=== PATIENT | female | born 1985 | race American Indian/Alaskan Native ===

== ENCOUNTER 2018-10-15 00:33 | Observation (INO) | payer OTHER ==
[2018-10-15 00:39] VITALS: BMI 83.5
[2018-10-15] MEDS ORDERED: Albuterol-Ipratrop 3 mg / 0.5 (3 ml) UD IH STA (00:40)
[2018-10-15] MEDS ORDERED: Magnesium Sulfate 1 gm in D5W 1 GM/100 ML BAG IVPB ONE (00:40)
[2018-10-15] MEDS ORDERED: Albuterol-Ipratrop 3 mg / 0.5 (3 ml) UD ONE (00:41)
[2018-10-15] MEDS ORDERED: Albuterol 0.083% Inhal Sol (2.5 mg/3 mL) UD INH STA ×2 (00:50→01:57)
--- NOTE | 2018-10-15 01:00 | ED PDOC ---
Arrival/HPI - General Chief Complaint: Shortness Of Breath Time Seen by Provider: 10/15/18 00:34 Historian: Patient - History of Present Illness Narrative History of Present Illness (Text): 10/15/18 00:56 32 year old female, whose past medical history includes asthma and hypertension, presents to the emergency department with shortness of breath. Patient reports that she has been feeling intermittent shortness of breath for 2 days that worsened today. She reports using her nebulizer with minimal response in relieving her symptoms. She reports some neck pain as well. Patient denies any fevers, chills, headache, dizziness, chest pain, abdominal pain, nausea, vomiting, diarrhea, back pain, syncopal episodes or prior history requiring intubation. Time/Duration: Prior to Arrival, 24 hours Symptom Onset: Gradual Symptom Course: Unchanged Activities at Onset: Significant Context: Home Past Medical History - Provider Review Nursing Documentation Reviewed: Yes - Cardiac Hx Cardiac Disorders: Yes Hx Hypertension: Yes - Pulmonary Hx Respiratory Disorders: Yes Hx Asthma: Yes - Psychiatric Hx Substance Use: No - Surgical History Hx Appendectomy: Yes Hx Tonsillectomy: Yes - Anesthesia Hx Anesthesia: Yes Hx Anesthesia Reactions: Yes (respiratory failure) Family/Social History - Physician Review Nursing Documentation Reviewed: Yes Family/Social History: No Known Family HX Smoking Status: Never Smoked Hx Alcohol Use: No Hx Substance Use: No Allergies/Home Meds Allergies/Adverse Reactions: Allergies Penicillins Allergy (Verified 10/15/18 00:40) ANAPHYLAXIS pizza Allergy (Uncoded 10/15/18 00:40) URTICARIA anesthesia Adverse Reaction (Uncoded 10/15/18 00:40) ANAPHYLAXIS Review of Systems - Physician Review All systems were reviewed & negative as marked: Yes - Review of Systems Constitutional: absent: Fevers, Night Sweats Respiratory: SOB, Wheezing Cardiovascular: absent: Chest Pain Gastrointestinal: absent: Abdominal Pain, Diarrhea, Nausea, Vomiting Musculoskeletal: Neck Pain. absent: Back Pain Neurological: absent: Headache, Dizziness Physical Exam Temperature: Febrile Blood Pressure: Hypertensive Pulse: Tachycardic Respiratory Rate: Normal Appearance: Positive for: Well-Appearing, Non-Toxic, Comfortable Pain Distress: None Mental Status: Positive for: Alert and Oriented X 3 - Systems Exam Head: Present: Atraumatic, Normocephalic Pupils: Present: PERRL Extroacular Muscles: Present: EOMI Conjunctiva: Present: Normal Mouth: Present: Moist Mucous Membranes Neck: Present: Normal Range of Motion Respiratory/Chest: Present: Wheezes, Decreased Breath Sounds. No: Respiratory Distress, Accessory Muscle Use Cardiovascular: Present: Normal S1, S2, Tachycardic. No: Murmurs Abdomen: No: Tenderness, Distention, Peritoneal Signs Back: Present: Normal Inspection Upper Extremity: Present: Normal Inspection. No: Cyanosis, Edema Lower Extremity: Present: Normal Inspection. No: Edema Neurological: Present: GCS=15, Speech Normal Skin: Present: Warm, Dry, Normal Color. No: Rashes Psychiatric: Present: Alert, Oriented x 3, Normal Insight, Normal Concentration Medical Decision Making ED Course and Treatment: 10/15/18 01:02 Impression: 32 year old female presents with asthma exacerbation Plan: --Labs -- Albuterol -- Duonebs -- Mag Sulfate -- Solumedrol -- Rapid flu a/b -- Reassess and disposition Prior Visits: Notes and results from previous visits were reviewed. Progress Notes: 10/15/18 02:49 Labs noted to be influenza negative, however patient is noted to be febrile as well as leukocytosis of 17. CXR negative for focal consolidation or infiltrate. Spoke to Dr Barron(house staff) who accepts patient to hospitalist service. - Lab Interpretations Lab Results: 10/15/18 02:05 10/15/18 02:05 Lab Results 10/15/18 02:05: Beta HCG, Quant < 2.39 10/15/18 02:05: Sodium 134, Potassium 4.2, Chloride 98, Carbon Dioxide 31, Anion Gap 10, BUN 9, Creatinine 0.8, Est GFR ( Amer) > 60, Est GFR (Non-Af Amer) > 60, Random Glucose 129 H, Calcium 9.1, Total Bilirubin 0.8, AST 35, ALT 14, Alkaline Phosphatase 81, Total Protein 8.5 H, Albumin 3.9, Globulin 4.6, Albumin/Globulin Ratio 0.9 L 10/15/18 02:05: WBC 17.1 H, RBC 4.94, Hgb 12.0, Hct 39.8, MCV 80.6, MCH 24.3 L, MCHC 30.2 L, RDW 18.1 H, Plt Count 314, MPV 10.4, Neut % (Auto) 88.6 H, Lymph % (Auto) 8.2 L, [place] % (Auto) 3.1, Eos % (Auto) 0.0 L, Baso % (Auto) 0.1, Lymph # (Auto) 1.4, [place] # (Auto) 0.5, Eos # (Auto) 0.0, Baso # (Auto) 0.02, Absolute Neuts (auto) 15.11 H 10/15/18 01:02: Influenza Typ A,B (EIA) Negative for flu a/b I have reviewed the lab results: Yes - RAD Interpretation Radiology Orders: 10/15/18 00:40 CHEST PORTABLE [RAD] Stat - EKG Interpretation EKG Interpretation (Text): 10/15/18 02:48 Sinus tachycardia @119bpm No ST elevations, No T wave inversions Interpreted by ED Physician: Yes Type: 12 lead EKG - Medication Orders Current Medication Orders: Magnesium Sulfate/Dextrose (Magnesium Sulfate 1 Gm/100 Ml D5w) 1 gm in 100 mls @ 100 mls/hr IVPB ONCE ONE Stop: 10/15/18 01:39 Discontinued Medications Albuterol Sulfate (Albuterol 0.083% Inhal Nisa (2.5 Mg/3 Ml) Ud) 2.5 mg INH STAT STA Stop: 10/15/18 00:51 Albuterol/Ipratropium (Duoneb 3 Mg/0.5 Mg (3 Ml) Ud) 3 ml IH STAT STA Stop: 10/15/18 00:41 Methylprednisolone (Solu-Medrol) 125 mg IVP STAT STA Stop: 10/15/18 00:41 - Scribe Statement The provider has reviewed the documentation as recorded by the Zach Sims Provider Scribe Attestation: All medical record entries made by the Petraibdash were at my direction and personally dictated by me. I have reviewed the chart and agree that the record accurately reflects my personal performance of the history, physical exam, medical decision making, and the department course for this patient. I have also personally directed, reviewed, and agree with the discharge instructions and disposition. Disposition/Present on Arrival - Present on Arrival Any Indicators Present on Arrival: No History of DVT/PE: No History of Uncontrolled Diabetes: No Urinary Catheter: No History of Decub. Ulcer: No History Surgical Site Infection Following: None - Disposition Have Diagnosis and Disposition been Completed?: No Diagnosis: Respiratory tract infection Disposition: HOSPITALIZED Disposition Time: 02:48 Patient Plan: Admission Condition: GOOD
[2018-10-15 02:31] LABS: BASO # 0.02 K/mm3 (0.0-2.0); BASO % 0.1 % (0.0-3.0); LYMPH # 1.4 (1.2-3.4); LYMPH % 8.2 % (22.0-35.0); MEAN CELL VOLUME 80.6 fl (80.0-105.0); MEAN CORPUSCULAR HEMOGLOBIN 24.3 pg (25.0-35.0); MEAN CORPUSCULAR HGB CONC 30.2 g/dl (31.0-37.0); MEAN PLATELET VOLUME 10.4 fl (7.0-11.0); MONO # 0.5 (0.1-0.6); MONO % 3.1 % (1.0-6.0); RBC 4.94 10^6/uL (3.5-6.1); RED CELL DISTRIBUTION WIDTH 18.1 % (11.5-14.5); WHITE BLOOD COUNT 17.1 10^3/uL (4.5-11.0)
[2018-10-15] MEDS ORDERED: MEROPENEM 500 MG in NS 500 MG/50 ML BAG IVPB STA (02:38)
[2018-10-15 02:39] LABS: ALB/GLOB RATIO 0.9 (1.1-1.8); ALBUMIN 3.9 g/dL (3.0-4.8); ALT/SGPT 14 U/L (7-56); AST/SGOT 35 U/L (14-36); BLOOD UREA NITROGEN 9 mg/dL (7-21); CALCIUM 9.1 mg/dL (8.4-10.5); GFR NON-AFRICAN AMERICAN > 60
[2018-10-15] MEDS ORDERED: MEROPENEM 500 MG in NS 500 MG/50 ML BAG IVPB ONE (02:52)
--- NOTE | 2018-10-15 02:59 | CP.PCM.HP ---
<Rena Reyes - Last Filed: 10/15/18 04:40> History of Present Illness - History of Present Illness History of Present Illness: PGY1 Medicine History and Physical Exam Note for Dr. Barron CC: shortness of breath x2 days This is a 32-year-old F with morbid (severe) obesity and PMH asthma, hypertension, who presents to the [facility] ED complaining of shortness of breath x2 days. Patient states that she was singing in the choir 2 days ago, after which she became short of breath, and experienced stabbing chest pain that lasted about 1 hour. Patient states the chest pain radiated up to her left neck and she also had associated tingling in her left lower extremities. Patient informs that she has been feeling intermittent shortness of breath for 2 days, worsening t audrey. Patient states she attempted to get relief with her nebulizer, but only yielded little relief. ROS is otherwise unremarkable for headache, abdominal pain, nausea, vomiting, diarrhea, rash, blurred vision, recent fall, recent loss of consciousness, and/or dysuria. PMH: Asthma (Patient denies history of intubation), HTN PSH: appendectomy, tonsillectomy Family Hx: Patient denies Social Hx: denies ETOH, denies Tobacco, denies Recreational drug use Medications: albuterol PRN, Patient does not recall her BP medication Allergies: penicillin (anaphylaxis), Pizza (urticaria), anesthesia (anaphylaxis) Present on Admission - Present on Admission Any Indicators Present on Admission: No History of DVT/PE: No History of Uncontrolled Diabetes: No Urinary Catheter: No Decubitus Ulcer Present: No Review of Systems - Review of Systems All systems: reviewed and no additional remarkable complaints except (as stated in HPI) Past Patient History - Past Social History Smoking Status: Never Smoked - CARDIAC Hx Cardiac Disorders: Yes Hx Hypertension: Yes - PULMONARY Hx Respiratory Disorders: Yes Hx Asthma: Yes - PSYCHIATRIC Hx Substance Use: No - SURGICAL HISTORY Hx Appendectomy: Yes Hx Tonsillectomy: Yes - ANESTHESIA Hx Anesthesia: Yes Hx Anesthesia Reactions: Yes (respiratory failure) Meds Allergies/Adverse Reactions: Allergies Allergy/AdvReac Type Severity Reaction Status Date / Time Penicillins Allergy ANAPHYLAXIS Verified 10/15/18 00:40 pizza Allergy URTICARIA Uncoded 10/15/18 00:40 anesthesia AdvReac ANAPHYLAXIS Uncoded 10/15/18 00:40 Physical Exam - Constitutional Appears: No Acute Distress Additional comments: morbidly obese diaphoretic - Head Exam Head Exam: ATRAUMATIC, NORMAL INSPECTION, NORMOCEPHALIC - Eye Exam Eye Exam: EOMI, Normal appearance Pupil Exam: NORMAL ACCOMODATION - ENT Exam ENT Exam: Mucous Membranes Moist - Neck Exam Neck exam: Positive for: Normal Inspection - Respiratory Exam Respiratory Exam: Clear to Auscultation Bilateral, NORMAL BREATHING PATTERN. absent: Accessory Muscle Use, Chest Wall Tenderness, Decreased Breath Sounds, Rales, Rhonchi, Wheezes, Stridor - Cardiovascular Exam Cardiovascular Exam: Tachycardia, +S1, +S2 - GI/Abdominal Exam GI & Abdominal Exam: Normal Bowel Sounds, Soft. absent: Rebound, Rigid - Extremities Exam Extremities exam: Positive for: normal capillary refill, normal inspection, pedal pulses present. Negative for: tenderness - Back Exam Back exam: NORMAL INSPECTION. absent: rash noted - Neurological Exam Neurological exam: Alert, CN II-XII Intact, Oriented x3, Reflexes Normal - Psychiatric Exam Psychiatric exam: Normal Affect, Normal Mood - Skin Skin Exam: Diaphoretic, Intact, Normal Color, Warm Results - Vital Signs Recent Vital Signs: Last Vital Signs Temp 101.5 F H 10/15/18 01:05 Pulse 125 H 10/15/18 01:05 Resp 18 10/15/18 01:12 BP 148/93 H 10/15/18 01:05 Pulse Ox 97 10/15/18 01:12 - Labs Result Diagrams: 10/15/18 02:05 10/15/18 02:05 Labs: Laboratory Results - last 24 hr 10/15/18 10/15/18 10/15/18 01:02 02:05 02:05 WBC 17.1 H RBC 4.94 Hgb 12.0 Hct 39.8 MCV 80.6 MCH 24.3 L MCHC 30.2 L RDW 18.1 H Plt Count 314 MPV 10.4 Neut % (Auto) 88.6 H Lymph % (Auto) 8.2 L [place] % (Auto) 3.1 Eos % (Auto) 0.0 L Baso % (Auto) 0.1 Lymph # (Auto) 1.4 [place] # (Auto) 0.5 Eos # (Auto) 0.0 Baso # (Auto) 0.02 Absolute Neuts (auto) 15.11 H Sodium 134 Potassium 4.2 Chloride 98 Carbon Dioxide 31 Anion Gap 10 BUN 9 Creatinine 0.8 Est GFR ( Amer) > 60 Est GFR (Non-Af Amer) > 60 Random Glucose 129 H Calcium 9.1 Total Bilirubin 0.8 AST 35 ALT 14 Alkaline Phosphatase 81 Total Protein 8.5 H Albumin 3.9 Globulin 4.6 Albumin/Globulin Ratio 0.9 L Influenza Typ A,B (EIA) Negative for flu a/b Assessment & Plan - Assessment and Plan (Free Text) Assessment: This is a 32-year-old F with morbid (severe) obesity and PMH asthma, hypertension, who presents to the [facility] ED complaining of shortness of breath x2 days. Shortness of breath likely secondary to CAP - CXR: cardiomegaly, bilateral infiltrates, possible right lower lobe consolidation but difficult to read due to limited x-ray (read by me) - Repeat AP/Lateral CXR in AM - F/U BNP - F/U troponin - EKG: Sinus tachycardia @119bpm; No ST elevations, No T wave inversions - Medications administered in ED: - Albuterol - Duoneb - Mag Sulfate - Solumedrol 125mg IVP once - ABX: meropenem IVPB, Zithromax PO - Rapid flu a/b negative - Discontinue: duonebs RASHMI and PRN due to tachycardia - Discontinue: meropenem - Start: levofloxacin 750mg IVPB and Zithromax 500mg IVPB - Start: xopenex IH Q6H - Start: solumedrol 20mg PO Q8 - Start: IVF @75mls/hr - F/U cultures - F/U daily CBC CMP in AM - Monitor History of Asthma - Discontinue duonebs due to tachycardia - Start: xopenex IH Q6H - Monitor Leukocytosis - Monitor CBC - Patient febrile - Motrin PRN - Monitor daily Morbid (sever) obesity - HgbA1C ordered - Diet: HHD - CPAP ordered PRN Ppx: - GI: not indicated at this time - DVT: SCDs - HHD Discussed with Dr. Beatrice Reyes PGY1 <Robin Barron - Last Filed: 10/15/18 06:57> Results - Vital Signs Recent Vital Signs: Last Vital Signs Temp 99.6 F 10/15/18 05:10 Pulse 110 H 10/15/18 06:05 Resp 20 10/15/18 06:05 BP 155/91 H 10/15/18 05:10 Pulse Ox 94 L 10/15/18 05:10 - Labs Result Diagrams: 10/15/18 02:05 10/15/18 02:05 Labs: Laboratory Results - last 24 hr 10/15/18 10/15/18 10/15/18 01:02 02:05 02:05 WBC 17.1 H RBC 4.94 Hgb 12.0 Hct 39.8 MCV 80.6 MCH 24.3 L MCHC 30.2 L RDW 18.1 H Plt Count 314 MPV 10.4 Neut % (Auto) 88.6 H Lymph % (Auto) 8.2 L [place] % (Auto) 3.1 Eos % (Auto) 0.0 L Baso % (Auto) 0.1 Lymph # (Auto) 1.4 [place] # (Auto) 0.5 Eos # (Auto) 0.0 Baso # (Auto) 0.02 Absolute Neuts (auto) 15.11 H pO2 VBG pH VBG pCO2 VBG HCO3 VBG Total CO2 VBG O2 Sat (Calc) VBG Base Excess VBG Potassium Glucose Lactate FiO2 Crit Value Called To Crit Value Called By Blood Gas Notified Time Sodium 134 Potassium 4.2 Chloride 98 Carbon Dioxide 31 Anion Gap 10 BUN 9 Creatinine 0.8 Est GFR ( Amer) > 60 Est GFR (Non-Af Amer) > 60 Random Glucose 129 H Calcium 9.1 Total Bilirubin 0.8 AST 35 ALT 14 Alkaline Phosphatase 81 Troponin I NT-Pro-B Natriuret Pep Total Protein 8.5 H Albumin 3.9 Globulin 4.6 Albumin/Globulin Ratio 0.9 L Beta HCG, Quant Venous Blood Potassium Influenza Typ A,B (EIA) Negative for flu a/b 10/15/18 10/15/18 10/15/18 02:05 03:10 06:20 WBC RBC Hgb Hct MCV MCH MCHC RDW Plt Count MPV Neut % (Auto) Lymph % (Auto) [place] % (Auto) Eos % (Auto) Baso % (Auto) Lymph # (Auto) [place] # (Auto) Eos # (Auto) Baso # (Auto) Absolute Neuts (auto) pO2 92 H VBG pH 7.24 L VBG pCO2 67.0 H* VBG HCO3 28.7 H VBG Total CO2 30.8 H VBG O2 Sat (Calc) 98.6 H VBG Base Excess -0.4 L VBG Potassium 3.9 Glucose 198 H Lactate 1.3 FiO2 21.0 Crit Value Called To Amanda yu rn Crit Value Called By Ernesto Blood Gas Notified Time 630 Sodium 134.0 Potassium Chloride 98.0 Carbon Dioxide Anion Gap BUN Creatinine Est GFR ( Amer) Est GFR (Non-Af Amer) Random Glucose Calcium Total Bilirubin AST ALT Alkaline Phosphatase Troponin I < 0.01 NT-Pro-B Natriuret Pep 241 Total Protein Albumin Globulin Albumin/Globulin Ratio Beta HCG, Quant < 2.39 Venous Blood Potassium 3.9 Influenza Typ A,B (EIA) Attending/Attestation - Attestation I have personally seen and examined this patient.: Yes I have fully participated in the care of the patient.: Yes I have reviewed all pertinent clinical information: Yes Notes (Text): 10/15/18 06:54 seen and examined. Discussed with resident. Agree with A&P as above.
[2018-10-15] MEDS ORDERED: MethylPREDNISolone 40 mg Vial IVP SCH (04:00)
[2018-10-15] MEDS ORDERED: Sodium Chloride 0.9% 100 ML IV SCH (04:00)
[2018-10-15 04:05] LABS: B-TYPE NATRIURETIC PEPTIDE 241 pg/mL (0-450); TROPONIN I < 0.01 ng/mL
[2018-10-15 06:39] LABS: VENOUS BLOOD GAS BASE EXCESS -0.4 mmol/L (0.0-2.0); VENOUS BLOOD GAS PO2 92 mm/Hg (30-55); VENOUS BLOOD PH 7.24 (7.32-7.43)
[2018-10-15] MEDS: Levalbuterol 0.63 MG/3 ML Inhal Soln UD IH SCH ×2 (08:17→13:39)
--- NOTE | 2018-10-15 08:45 | RAD ---
Date of service: 10/15/2018 HISTORY: fever COMPARISON: No prior. FINDINGS: LUNGS: No active pulmonary disease. PLEURA: No significant pleural effusion identified, no pneumothorax apparent. CARDIOVASCULAR: No aortic atherosclerotic calcification present. Normal cardiac size. No pulmonary vascular congestion. OSSEOUS STRUCTURES: No significant abnormalities. VISUALIZED UPPER ABDOMEN: Normal. OTHER FINDINGS: None. IMPRESSION: No active disease.
[2018-10-15] MEDS ORDERED: Levalbuterol 0.63 MG/3 ML Inhal Soln UD IH STA (09:55)
[2018-10-15] MEDS ORDERED: Levalbuterol 0.63 MG/3 ML Inhal Soln UD IH PRN (09:55)
[2018-10-15] MEDS ORDERED: levoFLOXacin 750 mg in D5W 150 ML BAG IVPB SCH (10:00)
[2018-10-15] MEDS ORDERED: Azithromycin 500MG/NS 250ml 500 MG/250 ML BAG IVPB SCH (10:00)
[2018-10-15] MEDS: levoFLOXacin 750 MG TAB PO SCH (10:22)
[2018-10-15] MEDS: Enoxaparin 40 mg Syringe SC SCH (10:22)
--- NOTE | 2018-10-15 10:38 | CARD ---
APPROVED REPORT Date of service: 10/15/2018 EKG Measurement Heart [id number] <Conclusion> Sinus tachycardia Otherwise normal ECG
--- NOTE | 2018-10-15 12:27 | RAD ---
Date of service: 10/15/2018 HISTORY: shortness of breath COMPARISON: Earlier same day TECHNIQUE: Chest PA and lateral FINDINGS: LUNGS: No active pulmonary disease. PLEURA: No significant pleural effusion identified. No pneumothorax apparent. CARDIOVASCULAR: No aortic atherosclerotic calcification present. Moderate cardiomegaly. Moderate vascular and interstitial congestion OSSEOUS STRUCTURES: No significant abnormalities. VISUALIZED UPPER ABDOMEN: Normal. OTHER FINDINGS: None. IMPRESSION: Moderate cardiomegaly. Moderate vascular and interstitial congestion
--- NOTE | 2018-10-15 13:29 | CP.PCM.CON ---
History of Present Illness - History of Present Illness History of Present Illness: PULMONARY CONSULT NOTE HPI Patient is 32yo female with PMHx of morbid obesity, BMI>80, Asthma (no intubations), hx of GISEL dx at age 16, non compliant with CPAP at home, presents with 2 day history of SOB, fever and chills. Pt reports she uses only Albuterol MDI, and nebulizer machine at home, not on any LABA/ICS. Pt also reports LE s welling, denies CP, palpitations, cough, N/V/D, abd pain. No other constitutional symptoms. Pt reports she had PFTs done as inpatient when hospitalized 2 months ago, does not know results. PMH: Asthma, HTN PSH: appendectomy, tonsillectomy Family Hx: NC Social Hx: denies ETOH, denies Tobacco, denies drug use Medications: as per EMR Allergies: penicillin, Pizza, anesthesia Review of Systems - Review of Systems Review of Systems: as per HPI Past Patient History - Past Social History Smoking Status: Never Smoked - CARDIAC Hx Cardiac Disorders: Yes Hx Hypertension: Yes - PULMONARY Hx Respiratory Disorders: Yes Hx Asthma: Yes - MUSCULOSKELETAL/RHEUMATOLOGICAL Hx Falls: No - PSYCHIATRIC Hx Substance Use: No (denies) - SURGICAL HISTORY Hx Surgeries: Yes Hx Appendectomy: Yes Hx Cholecystectomy: Yes - ANESTHESIA Hx Anesthesia: Yes Hx Anesthesia Reactions: Yes (respiratory failure) Meds Allergies/Adverse Reactions: Allergies Allergy/AdvReac Type Severity Reaction Status Date / Time Penicillins Allergy ANAPHYLAXIS Verified 10/15/18 00:40 pizza Allergy URTICARIA Uncoded 10/15/18 00:40 anesthesia AdvReac ANAPHYLAXIS Uncoded 10/15/18 00:40 - Medications Medications: Current Medications Enoxaparin Sodium (Lovenox) 40 mg SC DAILY [facility]; Protocol Last Admin: 10/15/18 10:22 Dose: 40 mg Levalbuterol HCl (Xopenex) 0.63 mg IH [id number] RASHMI Last Admin: 10/15/18 08:17 Dose: 0.63 mg Levalbuterol HCl (Xopenex) 0.63 mg IH [id number] PRN PRN Reason: Shortness of Breath Levofloxacin (Levaquin) 750 mg PO DAILY RASHMI; Protocol Last Admin: 10/15/18 10:22 Dose: 750 mg Prednisone (Prednisone Tab) 40 mg PO DAILY RASHMI Physical Exam - Constitutional Appears: Well, Non-toxic, No Acute Distress Additional comments: +morbid obesity - Head Exam Head Exam: NORMAL INSPECTION - Eye Exam Eye Exam: Normal appearance - ENT Exam ENT Exam: Mucous Membranes Moist - Respiratory Exam Respiratory Exam: Clear to Auscultation Bilateral, NORMAL BREATHING PATTERN - Cardiovascular Exam Cardiovascular Exam: REGULAR RHYTHM, +S1, +S2 - GI/Abdominal Exam GI & Abdominal Exam: Normal Bowel Sounds, Soft - Extremities Exam Extremities exam: Positive for: pedal edema - Neurological Exam Neurological exam: Alert, Oriented x3 Results - Vital Signs Recent Vital Signs: Last Vital Signs Temp 99.6 F 10/15/18 05:10 Pulse 96 H 10/15/18 10:00 Resp 20 10/15/18 06:05 BP 155/91 H 10/15/18 05:10 Pulse Ox 94 L 10/15/18 05:10 - Labs Result Diagrams: 10/15/18 02:05 10/15/18 02:05 Labs: Laboratory Results - last 24 hr 10/15/18 10/15/18 10/15/18 01:02 02:05 02:05 WBC 17.1 H RBC 4.94 Hgb 12.0 Hct 39.8 MCV 80.6 MCH 24.3 L MCHC 30.2 L RDW 18.1 H Plt Count 314 MPV 10.4 Neut % (Auto) 88.6 H Lymph % (Auto) 8.2 L [place] % (Auto) 3.1 Eos % (Auto) 0.0 L Baso % (Auto) 0.1 Lymph # (Auto) 1.4 [place] # (Auto) 0.5 Eos # (Auto) 0.0 Baso # (Auto) 0.02 Absolute Neuts (auto) 15.11 H pO2 VBG pH VBG pCO2 VBG HCO3 VBG Total CO2 VBG O2 Sat (Calc) VBG Base Excess VBG Potassium Glucose Lactate FiO2 Crit Value Called To Crit Value Called By Blood Gas Notified Time Sodium 134 Potassium 4.2 Chloride 98 Carbon Dioxide 31 Anion Gap 10 BUN 9 Creatinine 0.8 Est GFR ( Amer) > 60 Est GFR (Non-Af Amer) > 60 Random Glucose 129 H Hemoglobin A1c Calcium 9.1 Total Bilirubin 0.8 AST 35 ALT 14 Alkaline Phosphatase 81 Troponin I NT-Pro-B Natriuret Pep Total Protein 8.5 H Albumin 3.9 Globulin 4.6 Albumin/Globulin Ratio 0.9 L Procalcitonin TSH 3rd Generation Beta HCG, Quant Venous Blood Potassium Influenza Typ A,B (EIA) Negative for flu a/b 10/15/18 10/15/18 10/15/18 02:05 03:10 03:10 WBC RBC Hgb Hct MCV MCH MCHC RDW Plt Count MPV Neut % (Auto) Lymph % (Auto) [place] % (Auto) Eos % (Auto) Baso % (Auto) Lymph # (Auto) [place] # (Auto) Eos # (Auto) Baso # (Auto) Absolute Neuts (auto) pO2 VBG pH VBG pCO2 VBG HCO3 VBG Total CO2 VBG O2 Sat (Calc) VBG Base Excess VBG Potassium Glucose Lactate FiO2 Crit Value Called To Crit Value Called By Blood Gas Notified Time Sodium Potassium Chloride Carbon Dioxide Anion Gap BUN Creatinine Est GFR ( Amer) Est GFR (Non-Af Amer) Random Glucose Hemoglobin A1c 7.4 H Calcium Total Bilirubin AST ALT Alkaline Phosphatase Troponin I < 0.01 NT-Pro-B Natriuret Pep 241 Total Protein Albumin Globulin Albumin/Globulin Ratio Procalcitonin TSH 3rd Generation Beta HCG, Quant < 2.39 Venous Blood Potassium Influenza Typ A,B (EIA) 10/15/18 10/15/18 10/15/18 06:20 08:44 10:15 WBC RBC Hgb Hct MCV MCH MCHC RDW Plt Count MPV Neut % (Auto) Lymph % (Auto) [place] % (Auto) Eos % (Auto) Baso % (Auto) Lymph # (Auto) [place] # (Auto) Eos # (Auto) Baso # (Auto) Absolute Neuts (auto) pO2 92 H VBG pH 7.24 L VBG pCO2 67.0 H* VBG HCO3 28.7 H VBG Total CO2 30.8 H VBG O2 Sat (Calc) 98.6 H VBG Base Excess -0.4 L VBG Potassium 3.9 Glucose 198 H Lactate 1.3 FiO2 21.0 Crit Value Called To Amanda yu rn Crit Value Called By [facility] Blood Gas Notified Time 630 Sodium 134.0 Potassium Chloride 98.0 Carbon Dioxide Anion Gap BUN Creatinine Est GFR ( Amer) Est GFR (Non-Af Amer) Random Glucose Hemoglobin A1c Calcium Total Bilirubin AST ALT Alkaline Phosphatase Troponin I NT-Pro-B Natriuret Pep Total Protein Albumin Globulin Albumin/Globulin Ratio Procalcitonin 12.75 H TSH 3rd Generation 1.69 Beta HCG, Quant Venous Blood Potassium 3.9 Influenza Typ A,B (EIA) - Imaging and Cardiology Chest x-ray Status: Image reviewed by me, Report reviewed by me Assessment & Plan - Assessment and Plan (Free Text) Assessment: 32yo female with SOB, Asthma exacerbation SOB Asthma Exacerbation Morbid obesity, BMI>80 rule out Pulm HTN, CHF rule out Obesity hypoventilation syndrome GISEL - currently afebrile, HD stable, comfortable in NAD, speaking in full sentences on room air, no wheezing on exam - severe persistent asthma, uses MDI daily 2-3x Recommend: - Prednisone 40mg PO daily x 5 days - BIPAP at night 15/5/30% - needs outpatient sleep study and PFTs - obtain inpatient ECHO - Start Symbicort 80/4.5 2 puffs BI - DVT ppx
[2018-10-15] MEDS: Insulin Reg-LOW-Coverage SC SCH ×3 (17:28→22:11)
[2018-10-16] MEDS: Levalbuterol 0.63 MG/3 ML Inhal Soln UD IH SCH ×3 (01:25→13:19)
--- NOTE | 2018-10-16 07:01 | CP.PCM.PN ---
Subjective - Date & Time of Evaluation Date of Evaluation: 10/16/18 Time of Evaluation: 06:58 - Subjective Subjective: Resident Progress Note for Hospitalist Service Patient examined at bedside. No acute events overnight. Patient reports improvement in shortness of breath. Reports to mild neck soreness and bilateral hip aches. Also reports some discomfort with urination. Denies fevers, chills, chest pain, abdominal pain, diarrhea. Objective - Vital Signs/Intake and Output Vital Signs (last 24 hours): Temp Pulse Resp BP Pulse Ox 98 F 80 20 132/86 95 10/16/18 05:51 10/16/18 06:00 10/16/18 05:51 10/16/18 05:51 10/16/18 05:51 Intake and Output: 10/15/18 10/16/18 18:59 06:59 Intake Total 460 Balance 460 - Medications Medications: Current Medications Acetaminophen (Tylenol 325mg Tab) 650 mg PO Q6H PRN PRN Reason: Pain, moderate (4-7) Last Admin: 10/15/18 21:09 Dose: 650 mg Dextrose (Dextrose 50% Inj) 0 ml IV STAT PRN; Protocol PRN Reason: Hypoglycemia Protocol Enoxaparin Sodium (Lovenox) 40 mg SC DAILY [facility]; Protocol Last Admin: 10/15/18 10:22 Dose: 40 mg Dextrose (Dextrose 5% In Water 1000 Ml) 1,000 mls @ 0 mls/hr IV .Q0M PRN; P rotocol PRN Reason: Hypoglycemia Protocol Insulin Human Regular (Humulin R Low) 0 units SC ACHS [facility]; Protocol Last Admin: 10/15/18 22:11 Dose: Not Given Levalbuterol HCl (Xopenex) 0.63 mg IH [id number] [facility] Last Admin: 10/16/18 01:25 Dose: 0.63 mg Levalbuterol HCl (Xopenex) 0.63 mg IH [id number] PRN PRN Reason: Shortness of Breath Levofloxacin (Levaquin) 750 mg PO DAILY [facility]; Protocol Last Admin: 10/15/18 10:22 Dose: 750 mg Prednisone (Prednisone Tab) 40 mg PO DAILY [facility] - Labs Labs: 10/15/18 02:05 10/15/18 02:05 - Constitutional Appears: No Acute Distress - Head Exam Head Exam: ATRAUMATIC, NORMOCEPHALIC - Eye Exam Eye Exam: EOMI, Normal appearance - ENT Exam ENT Exam: Mucous Membranes Moist - Neck Exam Neck exam: Positive for: Normal Inspection - Respiratory Exam Respiratory Exam: Clear to Auscultation Bilateral, NORMAL BREATHING PATTERN. absent: Accessory Muscle Use, Chest Wall Tenderness, Decreased Breath Sounds, Rales, Rhonchi, Wheezes, Stridor - Cardiovascular Exam Cardiovascular Exam: Tachycardia, +S1, +S2 - GI/Abdominal Exam GI & Abdominal Exam: Normal Bowel Sounds, Soft. absent: Rebound, Rigid - Extremities Exam Extremities exam: Positive for: normal capillary refill, normal inspection, pedal pulses present. Negative for: tenderness - Neurological Exam Neurological exam: Alert, CN II-XII Intact, Oriented x3, Reflexes Normal - Psychiatric Exam Psychiatric exam: Normal Affect, Normal Mood - Skin Skin Exam: Intact, Normal Color, Warm Assessment and Plan - Assessment and Plan (Free Text) Assessment: Patient is a 32 year old female with past medical history of morbid obesity, asthma, hypertension presenting with shortness of breath due to acute exacerbation of asthma. Plan: Shortness of breath - CXR shows moderate vascular and interstitial congestion - BNP within normal limits - flu negative - Levofloxacin 750 mg PO - Xopenex Q4H PRN - Prednisone 40 mg PO daily - Bipap at night - Pulmonology consulted. Recs appreciated. - followup ECHO Leukocytosis - BCx neg x2 - febrile on admission - procalcitonin elevated - Tylenol PRN Morbid obesity - TSH within normal limits - patient planning for gastric bypass eval on discharge T2DM - ISS, Accuchecks PPX: - SCDs, Lovenox SC
[2018-10-16] MEDS: Insulin Reg-LOW-Coverage SC SCH ×3 (08:13→16:56)
[2018-10-16 08:25] LABS: BASO # 0.01 K/mm3 (0.0-2.0); BASO % 0.1 % (0.0-3.0); HEMOGLOBIN 11.6 g/dL (12.0-16.0); LYMPH # 1.4 (1.2-3.4); MEAN CELL VOLUME 80.3 fl (80.0-105.0); MEAN CORPUSCULAR HEMOGLOBIN 24.1 pg (25.0-35.0); MEAN PLATELET VOLUME 10.2 fl (7.0-11.0); MONO # 1.1 (0.1-0.6); MONO % 6.5 % (1.0-6.0); RBC 4.82 10^6/uL (3.5-6.1); RED CELL DISTRIBUTION WIDTH 18.3 % (11.5-14.5); WHITE BLOOD COUNT 17.6 10^3/uL (4.5-11.0)
[2018-10-16 08:36] LABS: ALB/GLOB RATIO 0.8 (1.1-1.8); ALBUMIN 3.6 g/dL (3.0-4.8); ALT/SGPT 8 U/L (7-56); AST/SGOT 26 U/L (14-36); BLOOD UREA NITROGEN 15 mg/dL (7-21); CALCIUM 8.8 mg/dL (8.4-10.5); GFR NON-AFRICAN AMERICAN > 60
[2018-10-16] MEDS: Enoxaparin 40 mg Syringe SC SCH (09:20)
[2018-10-16] MEDS: levoFLOXacin 750 MG TAB PO SCH (09:20)
[2018-10-16 10:17] VITALS: RESP 20; O2SAT 95
--- NOTE | 2018-10-16 12:08 | CP.PCM.PN ---
Subjective - Date & Time of Evaluation Date of Evaluation: 10/16/18 Time of Evaluation: 12:06 - Subjective Subjective: Pt seen and examined, reports to feel significantly better today, no SOB. Objective - Vital Signs/Intake and Output Vital Signs (last 24 hours): Temp Pulse Resp BP Pulse Ox 98 F 75 20 132/86 95 10/16/18 05:51 10/16/18 10:00 10/16/18 05:51 10/16/18 05:51 10/16/18 05:51 Intake and Output: 10/16/18 10/16/18 06:59 18:59 Intake Total 460 Balance 460 - Medications Medications: Current Medications Acetaminophen (Tylenol 325mg Tab) 650 mg PO Q6H PRN PRN Reason: Pain, moderate (4-7) Last Admin: 10/15/18 21:09 Dose: 650 mg Dextrose (Dextrose 50% Inj) 0 ml IV STAT PRN; Protocol PRN Reason: Hypoglycemia Protocol Enoxaparin Sodium (Lovenox) 40 mg SC DAILY [facility]; Protocol Last Admin: 10/16/18 09:20 Dose: 40 mg Dextrose (Dextrose 5% In Water 1000 Ml) 1,000 mls @ 0 mls/hr IV .Q0M PRN; Protocol PRN Reason: Hypoglycemia Protocol Insulin Human Regular (Humulin R Low) [address] [facility]; Protocol Last Admin: 10/16/18 08:13 Dose: Not Given Levalbuterol HCl (Xopenex) 0.63 mg IH [id number] [facility] Last Admin: 10/16/18 07:46 Dose: 0.63 mg Levalbuterol HCl (Xopenex) 0.63 mg IH [id number] PRN PRN Reason: Shortness of Breath Levofloxacin (Levaquin) 750 mg PO DAILY [facility]; Protocol Last Admin: 10/16/18 09:20 Dose: 750 mg Prednisone (Prednisone Tab) 40 mg PO DAILY [facility] Last Admin: 10/16/18 09:20 Dose: 40 mg - Labs Labs: 10/16/18 08:00 10/16/18 08:00 - Constitutional Appears: Non-toxic, No Acute Distress - Head Exam Head Exam: NORMAL INSPECTION - Eye Exam Eye Exam: Normal appearance - ENT Exam ENT Exam: Mucous Membranes Moist - Neck Exam Neck Exam: Full ROM - Respiratory Exam Respiratory Exam: Clear to Ausculation Bilateral, NORMAL BREATHING PATTERN - Cardiovascular Exam Cardiovascular Exam: REGULAR RHYTHM, +S1, +S2 - GI/Abdominal Exam GI & Abdominal Exam: Soft, Normal Bowel Sounds - Extremities Exam Extremities Exam: Full ROM, Normal Inspection - Neurological Exam Neurological Exam: Alert, Awake, Oriented x3 Assessment and Plan - Assessment and Plan (Free Text) Assessment: 32yo female with SOB, Asthma exacerbation SOB Asthma Exacerbation Morbid obesity, BMI>80 rule out Pulm HTN, CHF rule out Obesity hypoventilation syndrome GISEL - currently afebrile, HD stable, comfortable in NAD, speaking in full sentences on room air, no wheezing on exam - severe persistent asthma, uses MDI daily 2-3x - reports SOB has resolved today - ECHO, done, results pending Recommend: - Prednisone taper PO - BIPAP at night 12//30% - follow up ECHO read - Symbicort 80/4.5 2 puffs BID - DVT ppx - outpatient pulm follow up - needs outpatient sleep study and PFTs
[2018-10-16 12:22] VITALS: BP 132/92; TEMP 97.7
[2018-10-16 14:02] VITALS: PULSE 70
--- NOTE | 2018-10-16 15:09 | CP.PCM.DIS ---
<StefanieLevon L - Last Filed: 10/16/18 15:20> Provider - Provider Date of Admission: 10/15/18 02:44 Attending physician: Philip Awad MD Consults: 10/15/18 08:28 Pulmonology Consult Routine Comment: Consulting Provider: Chin Aragon Consulting Physician: Chin Aragon Reason for Consult: Asthma exacerbation Time Spent in preparation of Discharge (in minutes): 35 Diagnosis - Discharge Diagnosis (1) Asthma Status: Chronic (2) Obesity Status: Chronic (3) Hypertension Status: Chronic Hospital Course - Lab Results Lab Results: Micro Results 10/15/18 12:00 Urine Random Urine Culture - Final No Growth (<1,000 CFU/ML) 10/15/18 03:10 Blood Blood Culture - Preliminary NO GROWTH AFTER 24 HOURS 10/15/18 03:00 Blood Blood Culture - Preliminary NO GROWTH AFTER 24 HOURS Most Recent Lab Values WBC 17.6 10^3/uL (4.5-11.0) H 10/16/18 08:00 RBC 4.82 10^6/uL (3.5-6.1) 10/16/18 08:00 Hgb 11.6 g/dL (12.0-16.0) L 10/16/18 08:00 Hct 38.7 % (36.0-48.0) 10/16/18 08:00 MCV 80.3 fl (80.0-105.0) 10/16/18 08:00 MCH 24.1 pg (25.0-35.0) L 10/16/18 08:00 MCHC 30.0 g/dl (31.0-37.0) L 10/16/18 08:00 RDW 18.3 % (11.5-14.5) H 10/16/18 08:00 Plt Count 302 10^3/uL (120.0-450.0) 10/16/18 08:00 MPV 10.2 fl (7.0-11.0) 10/16/18 08:00 Neut % (Auto) 85.4 % (50.0-68.0) H 10/16/18 08:00 Lymph % (Auto) 8.0 % (22.0-35.0) L 10/16/18 08:00 Spink % (Auto) 6.5 % (1.0-6.0) H 10/16/18 08:00 Eos % (Auto) 0.0 % (1.5-5.0) L 10/16/18 08:00 Baso % (Auto) 0.1 % (0.0-3.0) 10/16/18 08:00 Lymph # (Auto) 1.4 (1.2-3.4) 10/16/18 08:00 Spink # (Auto) 1.1 (0.1-0.6) H 10/16/18 08:00 Eos # (Auto) 0.0 (0.0-0.7) 10/16/18 08:00 Baso # (Auto) 0.01 K/mm3 (0.0-2.0) 10/16/18 08:00 Absolute Neuts (auto) 15.01 (1.4-6.5) H 10/16/18 08:00 pO2 92 mm/Hg (30-55) H 10/15/18 06:20 VBG pH 7.24 (7.32-7.43) L 10/15/18 06:20 VBG pCO2 67.0 (40-60) H* 10/15/18 06:20 VBG HCO3 28.7 mmol/l (21-28) H 10/15/18 06:20 VBG Total CO2 30.8 mmol.L (22-28) H 10/15/18 06:20 VBG O2 Sat (Calc) 98.6 % (40-65) H 10/15/18 06:20 VBG Base Excess -0.4 mmol/L (0.0-2.0) L 10/15/18 06:20 VBG Potassium 3.9 mmol/L (3.6-5.2) 10/15/18 06:20 Sodium 134.0 mmol/L (132-148) 10/15/18 06:20 Chloride 98.0 mmol/L (98-107) 10/15/18 06:20 Glucose 198 mg/dl (65-105) H 10/15/18 06:20 Lactate 1.3 mmol/L (0.7-2.1) 10/15/18 06:20 FiO2 21.0 % 10/15/18 06:20 Crit Value Called To Amanda yu rn 10/15/18 06:20 Crit Value Called By Ernesto 10/15/18 06:20 Blood Gas Notified Time 630 10/15/18 06:20 Sodium 138 mmol/L (132-148) 10/16/18 08:00 Potassium 4.3 mmol/L (3.6-5.0) 10/16/18 08:00 Chloride 100 mmol/L (98-107) 10/16/18 08:00 Carbon Dioxide 33 mmol/L (21-33) 10/16/18 08:00 Anion Gap 10 (10-20) 10/16/18 08:00 BUN 15 mg/dL (7-21) 10/16/18 08:00 Creatinine 0.7 mg/dl (0.7-1.2) 10/16/18 08:00 Est GFR ( Amer) > 60 10/16/18 08:00 Est GFR (Non-Af Amer) > 60 10/16/18 08:00 POC Glucose (mg/dL) 179 mg/dL (65-110) H 10/16/18 12:10 Random Glucose 186 mg/dL (70-110) H 10/16/18 08:00 Hemoglobin A1c 7.4 % (4.2-6.5) H 10/15/18 03:10 Calcium 8.8 mg/dL (8.4-10.5) 10/16/18 08:00 Total Bilirubin 0.3 mg/dL (0.2-1.3) 10/16/18 08:00 AST 26 U/L (14-36) 10/16/18 08:00 ALT 8 U/L (7-56) 10/16/18 08:00 Alkaline Phosphatase 76 U/L (38-126) 10/16/18 08:00 Troponin I < 0.01 ng/mL 10/15/18 03:10 NT-Pro-B Natriuret Pep 241 pg/mL (0-450) 10/15/18 03:10 Total Protein 8.1 g/dL (5.8-8.3) 10/16/18 08:00 Albumin 3.6 g/dL (3.0-4.8) 10/16/18 08:00 Globulin 4.5 gm/dL 10/16/18 08:00 Albumin/Globulin Ratio 0.8 (1.1-1.8) L 10/16/18 08:00 Procalcitonin 12.75 NG/ML (0.19-0.49) H 10/15/18 08:44 TSH 3rd Generation 1.69 mIU/mL (0.46-4.68) 10/15/18 10:15 Beta HCG, Quant < 2.39 mIU/mL (0-6.15) 10/15/18 02:05 Venous Blood Potassium 3.9 mmol/L (3.6-5.2) 10/15/18 06:20 Influenza Typ A,B (EIA) Negative for flu a/b (NEGATIVE) 10/15/18 01:02 - Hospital Course Hospital Course: On admission: This is a 32-year-old F with morbid (severe) obesity and PMH asthma, hypertension, who presents to the [facility] complaining of shortness of breath x2 days. Patient states that she was singing in the choir 2 days ago, after which she became short of breath, and experienced stabbing chest pain that lasted about 1 hour. Patient states the chest pain radiated up to her left neck and she also had associated tingling in her left lower extremities. Patient informs that she has been feeling intermittent shortness of breath for 2 days, worsening today. Patient states she attempted to get relief with her nebulizer, but only yielded little relief. ROS is otherwise unremarkable for headache, abdominal pain, nausea, vomiting, diarrhea, rash, blurred vision, recent fall, recent loss of consciousness, and/or dysuria. During hospital stay: CXR showed no active disease. Patient was given Duonebs, solu-medrol, one dose of meropenem and zithromax. Flu was negative. IV fluids were started. Patient was noted to have leukocytosis but this was likely due to steroids. Patient was started on levaquin, zithromax, and xopenex, solu-medrol. Patient's Hgba1c was also elevated. Pulmonology was consulted, recommended pulmonary function tests, outpatient sleep study, Symbicort, bipap at night. Patient improved clinically and was optimized for discharge. Patient was provided medications before discharge and instructed to follow up with PMD. All questions and concerns were addressed. Discharge Exam - Additional Findings Additional findings: - Constitutional Appears: No Acute Distress - Head Exam Head Exam: ATRAUMATIC, NORMOCEPHALIC - Eye Exam Eye Exam: EOMI, Normal appearance - ENT Exam ENT Exam: Mucous Membranes Moist - Neck Exam Neck exam: Positive for: Normal Inspection - Respiratory Exam Respiratory Exam: Clear to Auscultation Bilateral, NORMAL BREATHING PATTERN. absent: Accessory Muscle Use, Chest Wall Tenderness, Decreased Breath Sounds, Rales, Rhonchi, Wheezes, Stridor - Cardiovascular Exam Cardiovascular Exam: RRR, +S1, +S2. absent: Systolic Murmurs - GI/Abdominal Exam GI & Abdominal Exam: Normal Bowel Sounds, Soft. absent: Rebound, Rigid - Extremities Exam Extremities exam: Positive for: normal capillary refill, normal inspection, pedal pulses present. Negative for: tenderness - Back Exam Back exam: NORMAL INSPECTION. absent: rash noted - Neurological Exam Neurological exam: Alert, CN II-XII Intact, Oriented x3, Reflexes Normal - Psychiatric Exam Psychiatric exam: Normal Affect, Normal Mood - Skin Skin Exam: Diaphoretic, Intact, Normal Color, Warm Discharge Plan - Discharge Medications Prescriptions: Albuterol HFA [Ventolin HFA 90 mcg/actuation (8 g)] 2 puff IH [id number] PRN 30 Days #2 puff PRN Reason: Shortness Of Breath Budesonide/Formoterol Fumarate [Symbicort] 2 aer IH DAILY 30 Days #1 aer Ibuprofen [Motrin] 400 mg PO Q6 PRN 7 Days #14 tab PRN Reason: Headache levoFLOXacin [Levaquin] 750 mg PO DAILY 4 Days #4 tab Pantoprazole Sodium [Protonix] 40 mg PO DAILY #14 ect predniSONE [predniSONE Tab] 40 mg PO DAILY 4 Days #4 tab - Follow Up Plan Condition: GOOD Disposition: HOME/ ROUTINE Instructions: Sleep Study, Heart Healthy Diet, Acute Bronchitis, Adult (DC), Diabetes Diet , Weight Loss Surgery Additional Instructions: Please follow up with primary care doctor in 3-5 days. You will repeat CBC in few days after completing the prednisone. You will need sleep study and PFTs as outpatient. Your hemoglobin A1C is 7.4 ( test for diabetes is positive), we recommend dietary modification and repeat blood work testing with your primary care doctor. Use the symbicort 2 puffs a day. Take prednisone 40 mg for 4 more days. Please return if symptoms returns. <Philip Awad - Last Filed: 10/17/18 17:11> Provider - Provider Date of Admission: 10/15/18 02:44 Attending physician: Philip Awad MD Consults: 10/15/18 08:28 Pulmonology Consult Routine Comment: Consulting Provider: Chin Aragon Consulting Physician: Chin Aragon Reason for Consult: Asthma exacerbation Hospital Course - Lab Results Lab Results: Micro Results 10/15/18 03:10 Blood Blood Culture - Preliminary NO GROWTH AFTER 48 HOURS 10/15/18 03:00 Blood Blood Culture - Preliminary NO GROWTH AFTER 48 HOURS 10/15/18 12:00 Urine Random Urine Culture - Final No Growth (<1,000 CFU/ML) Most Recent Lab Values WBC 17.6 10^3/uL (4.5-11.0) H 10/16/18 08:00 RBC 4.82 10^6/uL (3.5-6.1) 10/16/18 08:00 Hgb 11.6 g/dL (12.0-16.0) L 10/16/18 08:00 Hct 38.7 % (36.0-48.0) 10/16/18 08:00 MCV 80.3 fl (80.0-105.0) 10/16/18 08:00 MCH 24.1 pg (25.0-35.0) L 10/16/18 08:00 MCHC 30.0 g/dl (31.0-37.0) L 10/16/18 08:00 RDW 18.3 % (11.5-14.5) H 10/16/18 08:00 Plt Count 302 10^3/uL (120.0-450.0) 10/16/18 08:00 MPV 10.2 fl (7.0-11.0) 10/16/18 08:00 Neut % (Auto) 85.4 % (50.0-68.0) H 10/16/18 08:00 Lymph % (Auto) 8.0 % (22.0-35.0) L 10/16/18 08:00 Spink % (Auto) 6.5 % (1.0-6.0) H 10/16/18 08:00 Eos % (Auto) 0.0 % (1.5-5.0) L 10/16/18 08:00 Baso % (Auto) 0.1 % (0.0-3.0) 10/16/18 08:00 Lymph # (Auto) 1.4 (1.2-3.4) 10/16/18 08:00 Spink # (Auto) 1.1 (0.1-0.6) H 10/16/18 08:00 Eos # (Auto) 0.0 (0.0-0.7) 10/16/18 08:00 Baso # (Auto) 0.01 K/mm3 (0.0-2.0) 10/16/18 08:00 Absolute Neuts (auto) 15.01 (1.4-6.5) H 10/16/18 08:00 pO2 92 mm/Hg (30-55) H 10/15/18 06:20 VBG pH 7.24 (7.32-7.43) L 10/15/18 06:20 VBG pCO2 67.0 (40-60) H* 10/15/18 06:20 VBG HCO3 28.7 mmol/l (21-28) H 10/15/18 06:20 VBG Total CO2 30.8 mmol.L (22-28) H 10/15/18 06:20 VBG O2 Sat (Calc) 98.6 % (40-65) H 10/15/18 06:20 VBG Base Excess -0.4 mmol/L (0.0-2.0) L 10/15/18 06:20 VBG Potassium 3.9 mmol/L (3.6-5.2) 10/15/18 06:20 Sodium 134.0 mmol/L (132-148) 10/15/18 06:20 Chloride 98.0 mmol/L (98-107) 10/15/18 06:20 Glucose 198 mg/dl (65-105) H 10/15/18 06:20 Lactate 1.3 mmol/L (0.7-2.1) 10/15/18 06:20 FiO2 21.0 % 10/15/18 06:20 Crit Value Called To Amanda yu rn 10/15/18 06:20 Crit Value Called By Ernesto 10/15/18 06:20 Blood Gas Notified Time 630 10/15/18 06:20 Sodium 138 mmol/L (132-148) 10/16/18 08:00 Potassium 4.3 mmol/L (3.6-5.0) 10/16/18 08:00 Chloride 100 mmol/L (98-107) 10/16/18 08:00 Carbon Dioxide 33 mmol/L (21-33) 10/16/18 08:00 Anion Gap 10 (10-20) 10/16/18 08:00 BUN 15 mg/dL (7-21) 10/16/18 08:00 Creatinine 0.7 mg/dl (0.7-1.2) 10/16/18 08:00 Est GFR ( Amer) > 60 10/16/18 08:00 Est GFR (Non-Af Amer) > 60 10/16/18 08:00 POC Glucose (mg/dL) 179 mg/dL (65-110) H 10/16/18 12:10 Random Glucose 186 mg/dL (70-110) H 10/16/18 08:00 Hemoglobin A1c 7.4 % (4.2-6.5) H 10/15/18 03:10 Calcium 8.8 mg/dL (8.4-10.5) 10/16/18 08:00 Total Bilirubin 0.3 mg/dL (0.2-1.3) 10/16/18 08:00 AST 26 U/L (14-36) 10/16/18 08:00 ALT 8 U/L (7-56) 10/16/18 08:00 Alkaline Phosphatase 76 U/L (38-126) 10/16/18 08:00 Troponin I < 0.01 ng/mL 10/15/18 03:10 NT-Pro-B Natriuret Pep 241 pg/mL (0-450) 10/15/18 03:10 Total Protein 8.1 g/dL (5.8-8.3) 10/16/18 08:00 Albumin 3.6 g/dL (3.0-4.8) 10/16/18 08:00 Globulin 4.5 gm/dL 10/16/18 08:00 Albumin/Globulin Ratio 0.8 (1.1-1.8) L 10/16/18 08:00 Procalcitonin 12.75 NG/ML (0.19-0.49) H 10/15/18 08:44 TSH 3rd Generation 1.69 mIU/mL (0.46-4.68) 10/15/18 10:15 Beta HCG, Quant < 2.39 mIU/mL (0-6.15) 10/15/18 02:05 Venous Blood Potassium 3.9 mmol/L (3.6-5.2) 10/15/18 06:20 Influenza Typ A,B (EIA) Negative for flu a/b (NEGATIVE) 10/15/18 01:02 Attending/Attestation - Attestation I have personally seen and examined this patient.: Yes I have fully participated in the care of the patient.: Yes I have reviewed all pertinent clinical information, including history, physical exam and plan: Yes Notes (Text): 10/17/18 17:08 Attending note; Patient seen and examined with resident. Patient is alert and awake. Cough and shortness of breath improved significantly. Denies any fevers, chills. Denies any urinary, bowel symptoms. Currently off oxygen. Ambulating without difficulty. Patient is a 32-year-old Female with PMH of morbid obesity, asthma, hypertension, who presents to the [facility] complaining of shortness of breath x2 days. 1. Acute asthma exacerbation. Patient is treated with oxygen, DuoNeb, IV Solu-Medrol. Shortness of breath improved. Currently ambulating without any difficulty. Oxygen saturation improved. Cough is improving. Pulmonary evaluation appreciated. 2. Morbid obesity; patient is going for bariatric surgery. 3. Outpatient sleep study suggested. Patient was using CPAP before. Advised to follow-up with pulmonary for outpatient sleep study and CPAP prescription. 4. Elevated blood sugar; dietary education given. She might possibly avoid oral hypoglycemic agent if bariatric surgery is done. Patient will be discharged home. Follow-up with PMD/pulmonary Dr. Arriaza.
--- NOTE | 2018-10-16 17:42 | CARD ---
APPROVED REPORT Date of service: 10/16/2018 EXAM: Two-dimensional and M-mode echocardiogram with Doppler and color Doppler. INDICATION Dyspnea 2D DIMENSIONS Left Atrium (2D)5.2 (1.6-4.0cm)IVSd1.4 (0.7-1.1cm) LVDd5.2 (3.9-5.9cm)PWd1.6 (0.7-1.1cm) LVDs3.6 (2.5-4.0cm)FS (%) 29.8 % LVEF (%)56.5 (>50%) M-Mode DIMENSIONS Aortic Root3.30 (2.2-3.7cm)Aortic Cusp Exc.1.90 (1.5-2.0cm) Aortic Valve AoV Peak Gxajojeo132.0cm/Janelle Peak GR.13mmHg Mitral Valve MV E Wrroqcha274.0cm/sMV A Mjxwcgec29.8cm/sE/A ratio1.3 TDI E/Lateral E'0.0E/Medial E'0.0 Pulmonary Valve PV Peak Aapgqiqh60.5cm/sPV Peak Grad.2mmHg Tricuspid Valve TR Peak [id number]/sRAP [id number] Peak Gr.18mmHg [id number] LEFT VENTRICLE The left ventricle is normal size. There is mild concentric left ventricular hypertrophy. The left ventricular function is normal. The left ventricular ejection fraction is within the normal range. There is normal LV segmental wall motion. The left ventricular diastolic function is normal. RIGHT VENTRICLE The right ventricle is normal size. There is normal right ventricular wall thickness. The right ventricular systolic function is normal. ATRIA The left atrium is mildly dilated. The right atrium size is normal. AORTIC VALVE The aortic valve is not well visualized. No aortic regurgitation is present. There is no aortic valvular stenosis. MITRAL VALVE The mitral valve is not well visualized. There is no mitral valve regurgitation noted. There is no mitral valve stenosis. TRICUSPID VALVE The tricuspid valve is normal in structure. There is trace tricuspid regurgitation. PULMONIC VALVE The pulmonary valve is normal in structure. There is trace pulmonic valvular regurgitation. GREAT VESSELS The aortic root is normal in size. The IVC is normal in size and collapses >50% with inspiration. <Conclusion> There is mild concentric left ventricular hypertrophy. The left ventricular function is normal. The left ventricular ejection fraction is within the normal range. There is normal LV segmental wall motion. The left ventricular diastolic function is normal.
== END 2018-10-16 17:48 | disposition home or self-care (01) ==
LOC: ED 00:33 → ERH 02:44 → INTOOBSV 02:44 → ERH 04:17 → 2RSO 05:00
PROVIDERS: ADMIT Internal Medicine; ATTEND Internal Medicine
DX: J45.51 Severe persistent asthma with (acute) exacerbation (principal); D72.829 Elevated white blood cell count, unspecified; T38.0X5A Adverse effect of glucocorticoids and synthetic analogues, initial encounter; E66.01 Morbid (severe) obesity due to excess calories; I11.9 Hypertensive heart disease without heart failure; G47.33 Obstructive sleep apnea (adult) (pediatric); Z68.45 Body mass index [BMI] 70 or greater, adult; Z90.49 Acquired absence of other specified parts of digestive tract; Z88.4 Allergy status to anesthetic agent; Z88.0 Allergy status to penicillin; Z91.018 Allergy to other foods; Z87.892 Personal history of anaphylaxis
CPT/HCPCS: 36415; 71045; 71046; 80053; 81025; 82803; 82948; 83036; 83880; 84145; 84443; 84484; 84702; 85025; 87040; 87086; 87804; 93005; 93306; 94640; 94660; 96372; 96374; 96375; 99285; G0378; J1650; J2185; J2930; J3475

== ENCOUNTER 2018-12-31 01:17 | Inpatient (IN) | payer OTHER ==
[2018-12-31] MEDS: Sodium Chloride 0.9% 1,000 ML IV SCH ×2 (02:00→15:13)
[2018-12-31] MEDS ORDERED: Vancomycin 1gm in NS 250ml 1 GM/250 ML BAG IVPB STA (02:11)
[2018-12-31 02:25] LABS: HEMOGLOBIN 10.1 g/dL (12.0-16.0); MEAN CORPUSCULAR HEMOGLOBIN 24.9 pg (25.0-35.0); MEAN CORPUSCULAR HGB CONC 30.4 g/dl (31.0-37.0); MEAN PLATELET VOLUME 9.4 fl (7.0-11.0); RBC 4.05 10^6/uL (3.5-6.1); RED CELL DISTRIBUTION WIDTH 18.8 % (11.5-14.5); WHITE BLOOD COUNT 13.5 10^3/uL (4.5-11.0)
[2018-12-31 02:30] LABS: ALB/GLOB RATIO 0.8 (1.1-1.8); ALBUMIN 3.7 g/dL (3.0-4.8); ALT/SGPT 14 U/L (7-56); AST/SGOT 23 U/L (14-36); BLOOD UREA NITROGEN 9 mg/dL (7-21); CALCIUM 8.7 mg/dL (8.4-10.5); GFR NON-AFRICAN AMERICAN > 60
--- NOTE | 2018-12-31 02:41 | CP.PCM.HP ---
<Sánchez Millan - Last Filed: 12/31/18 04:34> History of Present Illness - History of Present Illness History of Present Illness: Sánchez Millan, PGY1 H&P for Dr. Witt cc: "Lower back pain and worsening doyle under abdomen" Patient is a 33 y/o F with PMHx Asthma, HTN, Morbid Obesity who presents to the ED for lower back pain and worsening doyle under her abdomen. She notes significant pustular drainage from her maryan. She subjectively notes that she has had low grade fevers. [place] [facility] [place] for an acute asthma exacerbation which resolved; she was also supposed to follow up as outpatient for bariatric surgery however she said she never had the surgery as it was cancelled - she does not know the reason as to why. She states the maryan under her lower abdomen have started 1 year ago in which she went [place] [facility] [place] it was not as bad. During this hospital admission, she says the maryan are significantly worse. Denies cp, sob, headache, n/v/d, bowel/bladder changes. A full 12 point ROS was conducted and unremarkable except as stated above. PMD: Dr. Arriaza Pharmacy: [facility] ([place]) PMH: Asthma (Patient denies history of intubation), HTN, Morbid Obesity PSH: appendectomy, tonsillectomy Family Hx: non-contributory Social Hx: denies ETOH, denies Tobacco, denies Recreational drug use Medications: see MAR. Allergies: penicillin (anaphylaxis), Pizza (urticaria), anesthesia (anaphylaxis) Present on Admission - Present on Admission Any Indicators Present on Admission: No Review of Systems - Review of Systems All systems: reviewed and no additional remarkable complaints except (as per HPI.) Past Patient History - Infectious Disease Hx of Infectious Diseases: None - Past Social History Smoking Status: Never Smoked - CARDIAC Hx Cardiac Disorders: Yes Hx Hypertension: Yes - PULMONARY Hx Respiratory Disorders: Yes Hx Asthma: Yes - MUSCULOSKELETAL/RHEUMATOLOGICAL Hx Falls: No - PSYCHIATRIC Hx Substance Use: No - SURGICAL HISTORY Hx Appendectomy: Yes Hx Tonsillectomy: Yes - ANESTHESIA Hx Anesthesia: Yes Hx Anesthesia Reactions: Yes (respiratory failure) Meds Allergies/Adverse Reactions: Allergies Allergy/AdvReac Type Severity Reaction Status Date / Time Penicillins Allergy ANAPHYLAXIS Verified 10/15/18 00:40 pizza Allergy URTICARIA Uncoded 10/15/18 00:40 anesthesia AdvReac ANAPHYLAXIS Uncoded 10/15/18 00:40 Physical Exam - Constitutional Appears: No Acute Distress - Head Exam Head Exam: ATRAUMATIC, NORMAL INSPECTION, NORMOCEPHALIC - Eye Exam Eye Exam: EOMI, Normal appearance - ENT Exam ENT Exam: Mucous Membranes Moist - Respiratory Exam Respiratory Exam: Clear to Auscultation Bilateral, NORMAL BREATHING PATTERN. absent: Accessory Muscle Use, Chest Wall Tenderness, Rales, Rhonchi, Wheezes - Cardiovascular Exam Cardiovascular Exam: RRR, +S1, +S2 - GI/Abdominal Exam GI & Abdominal Exam: Normal Bowel Sounds. absent: Guarding, Rebound, Rigid Additional comments: Significant pannus/obese abdomen with [id number] doyle, seeping with pustular drainage. No pain with palpation of doyle. Induration is present. - Extremities Exam Extremities exam: Positive for: normal capillary refill, pedal pulses present. Negative for: tenderness - Back Exam Back exam: tenderness (Lumbar tenderness ) - Neurological Exam Neurological exam: Alert, CN II-XII Intact, Oriented x3 - Psychiatric Exam Psychiatric exam: Normal Affect, Normal Mood - Skin Skin Exam: Dry, Intact, Warm Results - Vital Signs Recent Vital Signs: Last Vital Signs Temp 99.4 F 12/31/18 01:50 Pulse 100 H 12/31/18 01:50 Resp 18 12/31/18 01:50 BP 106/61 12/31/18 01:50 Pulse Ox 95 12/31/18 01:50 - Labs Result Diagrams: 12/31/18 01:50 12/31/18 01:50 Labs: Laboratory Results - last 24 hr 12/31/18 12/31/18 01:50 01:50 WBC 13.5 H D RBC 4.05 Hgb 10.1 L Hct 33.2 L MCV 82.0 MCH 24.9 L MCHC 30.4 L RDW 18.8 H Plt Count 332 MPV 9.4 Sodium 135 Potassium 3.8 Chloride 99 Carbon Dioxide 28 Anion Gap 13 BUN 9 Creatinine 0.8 Est GFR ( Amer) > 60 Est GFR (Non-Af Amer) > 60 Random Glucose 142 H Calcium 8.7 Total Bilirubin 1.6 H AST 23 ALT 14 Alkaline Phosphatase 79 Total Protein 8.5 H Albumin 3.7 Globulin 4.8 Albumin/Globulin Ratio 0.8 L Assessment & Plan - Assessment and Plan (Free Text) Assessment: Patient is a 33 y/o F with PMHx Asthma, HTN, Morbid Obesity who presents to the ED for lower back pain and worsening doyle under her abdomen. Plan: Lower Back Pain 2/2 Morbid Obesity (BMI 67) - Motrin 400mg PO q6 prn for pain control - Lidoderm patch applied to lower back - Patient would benefit significantly from outpatient bariatric surgery Doyle Underneath Lower Abdomen - Vancomycin 1g daily - wound cx - blood cx - ID consulted - Surgery consulted to evaluate for possible I&D of skin abscess; will keep NPO for now UTI - Ciprofloxacin IVPB q12 given penicillin allergy & associated cross-reactivity with ciprofloxacin - UA +wbc, +LE, +nitrates Anemia: - Hgb 10.1 (baseline 11-12) - iron studies ppx: - scd Diet: NPO Dispo: Monitor patient on the floor. Case was discussed and reviewed with Attending Physician, Dr. Witt <Debby Witt - Last Filed: 12/31/18 20:38> Results - Vital Signs Recent Vital Signs: Last Vital Signs Temp 98.7 F 12/31/18 16:59 Pulse 72 12/31/18 16:59 Resp 19 12/31/18 16:59 BP 119/74 12/31/18 16:59 Pulse Ox 96 12/31/18 16:59 - Labs Result Diagrams: 12/31/18 07:50 12/31/18 07:50 Labs: Laboratory Results - last 24 hr 12/31/18 12/31/18 12/31/18 01:50 01:50 02:26 WBC 13.5 H D RBC 4.05 Hgb 10.1 L Hct 33.2 L MCV 82.0 MCH 24.9 L MCHC 30.4 L RDW 18.8 H Plt Count 332 MPV 9.4 Neut % (Auto) Lymph % (Auto) Esmeralda % (Auto) Eos % (Auto) Baso % (Auto) Lymph # (Auto) Esmeralda # (Auto) Eos # (Auto) Baso # (Auto) Absolute Neuts (auto) Differential Comment ESR Retic Count PT INR APTT pO2 32 VBG pH 7.36 VBG pCO2 53.0 VBG HCO3 29.9 H VBG Total CO2 31.5 H VBG O2 Sat (Calc) 66.1 H VBG Base Excess 3.2 H VBG Potassium 3.6 Glucose 136 H Lactate 0.9 FiO2 21.0 Sodium 135 135.0 Potassium 3.8 Chloride 99 102.0 Carbon Dioxide 28 Anion Gap 13 BUN 9 Creatinine 0.8 Est GFR ( Amer) > 60 Est GFR (Non-Af Amer) > 60 POC Glucose (mg/dL) Random Glucose 142 H Hemoglobin A1c Calcium 8.7 Phosphorus Magnesium Iron TIBC % Saturation Transferrin Ferritin Total Bilirubin 1.6 H AST 23 ALT 14 Alkaline Phosphatase 79 C-React Prot High Sens Total Protein 8.5 H Albumin 3.7 Globulin 4.8 Albumin/Globulin Ratio 0.8 L Procalcitonin Venous Blood Potassium 3.6 Urine Color Urine Appearance Urine pH Ur Specific [place] Urine Protein Urine Glucose (UA) Urine Ketones Urine Blood Urine Nitrate Urine Bilirubin Urine Urobilinogen Ur Leukocyte Esterase Urine RBC Urine WBC Ur Epithelial Cells Urine Bacteria Urine Other RPR 12/31/18 12/31/18 12/31/18 03:10 07:46 07:50 WBC RBC Hgb Hct MCV MCH MCHC RDW Plt Count MPV Neut % (Auto) Lymph % (Auto) Esmeralda % (Auto) Eos % (Auto) Baso % (Auto) Lymph # (Auto) Esmeralda # (Auto) Eos # (Auto) Baso # (Auto) Absolute Neuts (auto) Differential Comment ESR Retic Count PT INR APTT pO2 VBG pH VBG pCO2 VBG HCO3 VBG Total CO2 VBG O2 Sat (Calc) VBG Base Excess VBG Potassium Glucose Lactate FiO2 Sodium Potassium Chloride Carbon Dioxide Anion Gap BUN Creatinine Est GFR ( Amer) Est GFR (Non-Af Amer) POC Glucose (mg/dL) 121 H Random Glucose Hemoglobin A1c Calcium Phosphorus Magnesium Iron TIBC % Saturation Transferrin 187.53 L Ferritin Total Bilirubin AST ALT Alkaline Phosphatase C-React Prot High Sens > 15.00 H Total Protein Albumin Globulin Albumin/Globulin Ratio Procalcitonin Venous Blood Potassium Urine Color Yellow Urine Appearance Sl cloudy Urine pH 6.0 Ur Specific [place] 1.015 Urine Protein 30 H Urine Glucose (UA) Negative Urine Ketones Trace H Urine Blood Small H Urine Nitrate Positive H Urine Bilirubin Small H Urine Urobilinogen >=8.0 Ur Leukocyte Esterase Large H Urine RBC 0 - 2 Urine WBC 15 - 20 H Ur Epithelial Cells 1 - 3 Urine Bacteria Mod Urine Other Trichomonas RPR 12/31/18 12/31/18 12/31/18 07:50 07:50 07:50 WBC 12.2 H RBC 3.92 Hgb 9.6 L Hct 32.3 L MCV 82.4 MCH 24.5 L MCHC 29.7 L RDW 19.0 H Plt Count 305 MPV 9.7 Neut % (Auto) 75.9 H Lymph % (Auto) 17.9 L Esmeralda % (Auto) 6.0 Eos % (Auto) 0.1 L Baso % (Auto) 0.1 Lymph # (Auto) 2.2 Esmeralda # (Auto) 0.7 H Eos # (Auto) 0.0 Baso # (Auto) 0.01 Absolute Neuts (auto) 9.29 H Differential Comment ESR 100 H Retic Count PT 17.4 H INR 1.54 APTT 33.7 pO2 VBG pH VBG pCO2 VBG HCO3 VBG Total CO2 VBG O2 Sat (Calc) VBG Base Excess VBG Potassium Glucose Lactate FiO2 Sodium 137 Potassium 3.8 Chloride 101 Carbon Dioxide 28 Anion Gap 12 BUN 9 Creatinine 0.7 Est GFR ( Amer) > 60 Est GFR (Non-Af Amer) > 60 POC Glucose (mg/dL) Random Glucose 111 H Hemoglobin A1c Calcium 8.3 L Phosphorus Magnesium Iron TIBC % Saturation Transferrin Ferritin 281.0 Total Bilirubin 1.1 AST 17 ALT 13 Alkaline Phosphatase 69 C-React Prot High Sens Total Protein 7.8 Albumin 3.3 Globulin 4.5 Albumin/Globulin Ratio 0.7 L Procalcitonin Venous Blood Potassium Urine Color Urine Appearance Urine pH Ur Specific [place] Urine Protein Urine Glucose (UA) Urine Ketones Urine Blood Urine Nitrate Urine Bilirubin Urine Urobilinogen Ur Leukocyte Esterase Urine RBC Urine WBC Ur Epithelial Cells Urine Bacteria Urine Other RPR 12/31/18 12/31/18 12/31/18 07:50 07:50 07:50 WBC RBC Hgb Hct MCV MCH MCHC RDW Plt Count MPV Neut % (Auto) Lymph % (Auto) Esmeralda % (Auto) Eos % (Auto) Baso % (Auto) Lymph # (Auto) Esmeralda # (Auto) Eos # (Auto) Baso # (Auto) Absolute Neuts (auto) Differential Comment ESR Retic Count 1.42 PT INR APTT pO2 VBG pH VBG pCO2 VBG HCO3 VBG Total CO2 VBG O2 Sat (Calc) VBG Base Excess VBG Potassium Glucose Lactate FiO2 Sodium Potassium Chloride Carbon Dioxide Anion Gap BUN Creatinine Est GFR ( Amer) Est GFR (Non-Af Amer) POC Glucose (mg/dL) Random Glucose Hemoglobin A1c 7.2 H Calcium Phosphorus Magnesium Iron 17 L TIBC 273 % Saturation 6 L Transferrin Ferritin Total Bilirubin AST ALT Alkaline Phosphatase C-React Prot High Sens Total Protein Albumin Globulin Albumin/Globulin Ratio Procalcitonin Venous Blood Potassium Urine Color Urine Appearance Urine pH Ur Specific [place] Urine Protein Urine Glucose (UA) Urine Ketones Urine Blood Urine Nitrate Urine Bilirubin Urine Urobilinogen Ur Leukocyte Esterase Urine RBC Urine WBC Ur Epithelial Cells Urine Bacteria Urine Other RPR 12/31/18 12/31/18 12/31/18 07:50 08:30 08:48 WBC RBC Hgb Hct MCV MCH MCHC RDW Plt Count MPV Neut % (Auto) Lymph % (Auto) Esmeralda % (Auto) Eos % (Auto) Baso % (Auto) Lymph # (Auto) Esmeralda # (Auto) Eos # (Auto) Baso # (Auto) Absolute Neuts (auto) Differential Comment See pathology report ESR Retic Count PT INR APTT pO2 VBG pH VBG pCO2 VBG HCO3 VBG Total CO2 VBG O2 Sat (Calc) VBG Base Excess VBG Potassium Glucose Lactate FiO2 Sodium Potassium Chloride Carbon Dioxide Anion Gap BUN Creatinine Est GFR ( Amer) Est GFR (Non-Af Amer) POC Glucose (mg/dL) Random Glucose Hemoglobin A1c Calcium Phosphorus 3.5 Magnesium 1.7 Iron TIBC % Saturation Transferrin Ferritin Total Bilirubin AST ALT Alkaline Phosphatase C-React Prot High Sens Total Protein Albumin Globulin Albumin/Globulin Ratio Procalcitonin Venous Blood Potassium Urine Color Urine Appearance Urine pH Ur Specific [place] Urine Protein Urine Glucose (UA) Urine Ketones Urine Blood Urine Nitrate Urine Bilirubin Urine Urobilinogen Ur Leukocyte Esterase Urine RBC Urine WBC Ur Epithelial Cells Urine Bacteria Urine Other RPR Nonreactive 12/31/18 12/31/18 12/31/18 10:00 11:43 16:24 WBC RBC Hgb Hct MCV MCH MCHC RDW Plt Count MPV Neut % (Auto) Lymph % (Auto) Esmeralda % (Auto) Eos % (Auto) Baso % (Auto) Lymph # (Auto) Esmeralda # (Auto) Eos # (Auto) Baso # (Auto) Absolute Neuts (auto) Differential Comment ESR Retic Count PT INR APTT pO2 VBG pH VBG pCO2 VBG HCO3 VBG Total CO2 VBG O2 Sat (Calc) VBG Base Excess VBG Potassium Glucose Lactate FiO2 Sodium Potassium Chloride Carbon Dioxide Anion Gap BUN Creatinine Est GFR ( Amer) Est GFR (Non-Af Amer) POC Glucose (mg/dL) 120 H 108 Random Glucose Hemoglobin A1c Calcium Phosphorus Magnesium Iron TIBC % Saturation Transferrin Ferritin Total Bilirubin AST ALT Alkaline Phosphatase C-React Prot High Sens Total Protein Albumin Globulin Albumin/Globulin Ratio Procalcitonin 0.75 H Venous Blood Potassium Urine Color Urine Appearance Urine pH Ur Specific [place] Urine Protein Urine Glucose (UA) Urine Ketones Urine Blood Urine Nitrate Urine Bilirubin Urine Urobilinogen Ur Leukocyte Esterase Urine RBC Urine WBC Ur Epithelial Cells Urine Bacteria Urine Other RPR Attending/Attestation - Attestation I have personally seen and examined this patient.: Yes I have fully participated in the care of the patient.: Yes I have reviewed all pertinent clinical information: Yes
[2018-12-31] MEDS ORDERED: Morphine 2 mg/ml ISec IVP STA (02:48)
--- NOTE | 2018-12-31 02:50 | ED PDOC ---
Arrival/HPI - General Chief Complaint: Back Pain Time Seen by Provider: 12/31/18 01:23 Historian: Patient - History of Present Illness Narrative History of Present Illness (Text): 12/31/18 02:46 33 year old female, whose past medical history includes morbid obesity, asthma, and hypertension, presents to the emergency department complaining of lower back discomfort and infected "boils"of lower abdomen. Patient states she has been running a low grade fever. Patient denies any nausea, vomiting, diarrhea, urinary symptoms, chest pain, shortness of breath, or any other complaints. Time/Duration: Prior to Arrival Symptom Onset: Gradual Symptom Course: Unchanged Activities at Onset: Light Past Medical History - Provider Review Nursing Documentation Reviewed: Yes - Infectious Disease Hx of Infectious Diseases: None - Cardiac Hx Cardiac Disorders: Yes Hx Hypertension: Yes - Pulmonary Hx Respiratory Disorders: Yes Hx Asthma: Yes - Musculoskeletal/Rheumatological Hx Falls: No - Psychiatric Hx Substance Use: No - Surgical History Hx Appendectomy: Yes Hx Tonsillectomy: Yes - Anesthesia Hx Anesthesia: Yes Hx Anesthesia Reactions: Yes (respiratory failure) Family/Social History - Physician Review Nursing Documentation Reviewed: Yes Family/Social History: No Known Family HX Smoking Status: Never Smoked Hx Alcohol Use: No Hx Substance Use: No Allergies/Home Meds Allergies/Adverse Reactions: Allergies Penicillins Allergy (Verified 10/15/18 00:40) ANAPHYLAXIS pizza Allergy (Uncoded 10/15/18 00:40) URTICARIA anesthesia Adverse Reaction (Uncoded 10/15/18 00:40) ANAPHYLAXIS Review of Systems - Physician Review All systems were reviewed & negative as marked: Yes - Review of Systems Constitutional: absent: Fevers Respiratory: absent: SOB Cardiovascular: absent: Chest Pain Gastrointestinal: Abdominal Pain. absent: Diarrhea, Nausea, Vomiting Musculoskeletal: absent: Back Pain Physical Exam Vital Signs Reviewed: Yes Vital Signs Temp Pulse Resp BP Pulse Ox 12/31/18 01:50 99.4 F 100 H 18 106/61 95 Temperature: Afebrile Blood Pressure: Normal Pulse: Tachycardic Respiratory Rate: Normal Appearance: Positive for: Non-Toxic, Comfortable, Other (Morbidly Obese) Pain Distress: None Mental Status: Positive for: Alert and Oriented X 3 - Systems Exam Head: Present: Atraumatic, Normocephalic Pupils: Present: PERRL Extroacular Muscles: Present: EOMI Conjunctiva: Present: Normal Mouth: Present: Moist Mucous Membranes Neck: Present: Normal Range of Motion Respiratory/Chest: Present: Clear to Auscultation, Good Air Exchange. No: Respiratory Distress, Accessory Muscle Use Cardiovascular: Present: Regular Rate and Rhythm, Normal S1, S2. No: Murmurs Abdomen: Present: Normal Bowel Sounds, Other (large pannus with indurated skin/underlying erythema microabscesses purulent drainage). No: Tenderness, Distention, Peritoneal Signs Back: Present: Normal Inspection. No: Midline Tenderness, Paraspinal Tenderness Upper Extremity: Present: Normal Inspection. No: Cyanosis, Edema Lower Extremity: Present: Normal Inspection. No: Edema Neurological: Present: GCS=15, CN II-XII Intact, Speech Normal Skin: Present: Warm, Dry, Normal Color. No: Rashes Psychiatric: Present: Alert, Oriented x 3, Normal Insight, Normal Concentration Medical Decision Making ED Course and Treatment: 12/31/18 02:40 Impression: Differential Diagnosis included but are not limited to: Plan: -- VBG -- Morphine -- Vancomycin -- Blood and wound cultures -- Urinalysis -- Reassess and disposition Prior Visits: Notes and results from previous visits were reviewed. Progress Notes: 12/31/18 02:57 Patient's symptoms are consistent with cellulites, panniculitis. Case was discussed with medical office coordinator, and Dr Witt, who accept admission to the hospitalist services for IV antibiotics, and further evaluation. - Lab Interpretations Lab Results: Total Bilirubin 1.6 mg/dL (0.2-1.3) H 12/31/18 01:50 AST 23 U/L (14-36) 12/31/18 01:50 ALT 14 U/L (7-56) 12/31/18 01:50 Alkaline Phosphatase 79 U/L (38-126) 12/31/18 01:50 Total Protein 8.5 g/dL (5.8-8.3) H 12/31/18 01:50 Albumin 3.7 g/dL (3.0-4.8) 12/31/18 01:50 Globulin 4.8 gm/dL 12/31/18 01:50 Albumin/Globulin Ratio 0.8 (1.1-1.8) L 12/31/18 01:50 - Medication Orders Current Medication Orders: Sodium Chloride (Sodium Chloride 0.9%) 1,000 mls @ 100 mls/hr IV .Q10H RASHMI Vancomycin HCl (Vancomycin 1gm) 1 gm in 250 mls @ 133.333 mls/hr IVPB STAT STA; Protocol Stop: 12/31/18 04:03 - Scribe Statement The provider has reviewed the documentation as recorded by the Petraibdash Sims Provider Scribe Attestation: All medical record entries made by the Scribe were at my direction and personally dictated by me. I have reviewed the chart and agree that the record accurately reflects my personal performance of the history, physical exam, medical decision making, and the department course for this patient. I have also personally directed, reviewed, and agree with the discharge instructions and disposition. Disposition/Present on Arrival - Present on Arrival Any Indicators Present on Arrival: No History of DVT/PE: No History of Uncontrolled Diabetes: No Urinary Catheter: No History of Decub. Ulcer: No History Surgical Site Infection Following: None - Disposition Have Diagnosis and Disposition been Completed?: Yes Diagnosis: Cellulitis, Panniculitis Disposition: HOSPITALIZED Disposition Time: 02:50 Patient Problems: Current Active Problems Problem Status Onset Cellulitis Acute Panniculitis Acute Condition: GOOD
[2018-12-31 03:05] LABS: VENOUS BLOOD GAS BASE EXCESS 3.2 mmol/L (0.0-2.0); VENOUS BLOOD GAS PO2 32 mm/Hg (30-55); VENOUS BLOOD PH 7.36 (7.32-7.43)
[2018-12-31 03:21] LABS: URINE BILIRUBIN SMALL (NEGATIVE); URINE BLOOD SMALL (NEGATIVE); URINE GLUCOSE (UA) NEGATIVE (NEGATIVE); URINE LEUKOCYTE ESTERASE LARGE Leu/uL (NEGATIVE); URINE PROTEIN 30 mg/dL (<30 mg/dL); URINE UROBILINOGEN >=8.0 E.U./dL (<1 E.U./dL)
[2018-12-31 03:25] LABS: URINE APPEARANCE SL CLOUDY (CLEAR); URINE COLOR YELLOW (YELLOW)
[2018-12-31 03:42] LABS: URINE RBC 0 - 2 /hpf (0-2); URINE WBC 15 - 20 /hpf (0-6)
[2018-12-31 03:43] LABS: URINE BACTERIA MOD /hpf
[2018-12-31 05:14] VITALS: BMI 67.8
[2018-12-31] MEDS ORDERED: Albuterol-Ipratrop 3 mg / 0.5 (3 ml) UD IH PRN (05:27)
[2018-12-31] MEDS ORDERED: metroNIDAZOLE IV 500 mg/100 ml 500 MG/100 ML BAG IVPB SCH (06:00)
--- NOTE | 2018-12-31 06:14 | CP.PCM.CON ---
History of Present Illness - History of Present Illness History of Present Illness: SURGERY CONSULT NOTE FOR DR. SANZ Reason: pannus wound 33F presents to hospital for back pain. Surgery team consulted for abdominal wound. Patient is morbidly obese and shorter in stature. She states this wound has been going on for the past year and recently got worse. She states the wound is now weeping and has a malodorous scent. She admits to subjective fevers at home yesterday. Due to size she is unable to take care of the wound by her self. PMH: Asthma, HTN, Obesity PSH: Appendectomy, Tonsillectomy Past Patient History - Infectious Disease Hx of Infectious Diseases: None - Past Social History Smoking Status: Never Smoked - CARDIAC Hx Cardiac Disorders: Yes Hx Hypertension: Yes - PULMONARY Hx Respiratory Disorders: Yes Hx Asthma: Yes - INTEGUMENTARY Other/Comment: multiple boils/absesses - MUSCULOSKELETAL/RHEUMATOLOGICAL Hx Falls: No - PSYCHIATRIC Hx Substance Use: No - SURGICAL HISTORY Hx Appendectomy: Yes Hx Tonsillectomy: Yes - ANESTHESIA Hx Anesthesia: Yes Hx Anesthesia Reactions: Yes (respiratory failure) Meds Allergies/Adverse Reactions: Allergies Allergy/AdvReac Type Severity Reaction Status Date / Time Penicillins Allergy ANAPHYLAXIS Verified 10/15/18 00:40 pizza Allergy URTICARIA Uncoded 10/15/18 00:40 anesthesia AdvReac ANAPHYLAXIS Uncoded 10/15/18 00:40 - Medications Medications: Current Medications Albuterol/Ipratropium (Duoneb 3 Mg/0.5 Mg (3 Ml) Ud) 3 ml IH [id number] RASHMI Albuterol/Ipratropium (Duoneb 3 Mg/0.5 Mg (3 Ml) Ud) 3 ml IH [id number] PRN PRN Reason: Shortness of Breath Sodium Chloride (Sodium Chloride 0.9%) 1,000 mls @ 100 mls/hr IV .Q10H RASHMI Last Admin: 12/31/18 02:00 Dose: 100 mls/hr Vancomycin HCl (Vancomycin 1gm) 1 gm in 250 mls @ 167 mls/hr IVPB DAILY RASHMI; Protocol Ciprofloxacin (Cipro 200mg/100ml D5w) 100 mls @ 67 mls/hr IVPB Q12 RASHMI; Protocol Stop: 12/31/18 11:30 Metronidazole (Flagyl) 500 mg in 100 mls @ 100 mls/hr IVPB Q8 RASHMI; Protocol Last Admin: 12/31/18 06:09 Dose: 100 mls/hr Ibuprofen (Motrin Tab) 400 mg PO Q6H PRN PRN Reason: Pain, moderate (4-7) Lidocaine (Lidoderm) 1 ea TD DAILY RASHMI Physical Exam - Constitutional Appears: Non-toxic, No Acute Distress, Other (Morbidly obese) - Eye Exam Eye Exam: EOMI, PERRL - ENT Exam ENT Exam: Mucous Membranes Moist - Respiratory Exam Respiratory Exam: Clear to Auscultation Bilateral, NORMAL BREATHING PATTERN - Cardiovascular Exam Cardiovascular Exam: REGULAR RHYTHM, +S1, +S2 - GI/Abdominal Exam GI & Abdominal Exam: Soft. absent: Distended, Firm, Guarding, Rebound, Rigid, Tenderness Additional comments: pannus wound, indurated, mildly tender to touch, weeping in some areas - Extremities Exam Extremities exam: Negative for: pedal edema, tenderness - Neurological Exam Neurological exam: Alert, Oriented x3 - Skin Skin Exam: Dry, Intact, Normal Color, Warm Results - Vital Signs Recent Vital Signs: Last Vital Signs Temp 99.4 F 12/31/18 01:50 Pulse 93 H 12/31/18 03:45 Resp 20 12/31/18 05:03 BP 110/62 12/31/18 03:45 Pulse Ox 95 12/31/18 03:45 - Labs Result Diagrams: 12/31/18 01:50 12/31/18 01:50 Labs: Laboratory Results - last 24 hr 12/31/18 12/31/18 12/31/18 01:50 01:50 02:26 WBC 13.5 H D RBC 4.05 Hgb 10.1 L Hct 33.2 L MCV 82.0 MCH 24.9 L MCHC 30.4 L RDW 18.8 H Plt Count 332 MPV 9.4 pO2 32 VBG pH 7.36 VBG pCO2 53.0 VBG HCO3 29.9 H VBG Total CO2 31.5 H VBG O2 Sat (Calc) 66.1 H VBG Base Excess 3.2 H VBG Potassium 3.6 Glucose 136 H Lactate 0.9 FiO2 21.0 Sodium 135 135.0 Potassium 3.8 Chloride 99 102.0 Carbon Dioxide 28 Anion Gap 13 BUN 9 Creatinine 0.8 Est GFR ( Amer) > 60 Est GFR (Non-Af Amer) > 60 Random Glucose 142 H Calcium 8.7 Total Bilirubin 1.6 H AST 23 ALT 14 Alkaline Phosphatase 79 Total Protein 8.5 H Albumin 3.7 Globulin 4.8 Albumin/Globulin Ratio 0.8 L Venous Blood Potassium 3.6 Urine Color Urine Appearance Urine pH Ur Specific [place] Urine Protein Urine Glucose (UA) Urine Ketones Urine Blood Urine Nitrate Urine Bilirubin Urine Urobilinogen Ur Leukocyte Esterase Urine RBC Urine WBC Ur Epithelial Cells Urine Bacteria Urine Other 12/31/18 03:10 WBC RBC Hgb Hct MCV MCH MCHC RDW Plt Count MPV pO2 VBG pH VBG pCO2 VBG HCO3 VBG Total CO2 VBG O2 Sat (Calc) VBG Base Excess VBG Potassium Glucose Lactate FiO2 Sodium Potassium Chloride Carbon Dioxide Anion Gap BUN Creatinine Est GFR ( Amer) Est GFR (Non-Af Amer) Random Glucose Calcium Total Bilirubin AST ALT Alkaline Phosphatase Total Protein Albumin Globulin Albumin/Globulin Ratio Venous Blood Potassium Urine Color Yellow Urine Appearance Sl cloudy Urine pH 6.0 Ur Specific [place] 1.015 Urine Protein 30 H Urine Glucose (UA) Negative Urine Ketones Trace H Urine Blood Small H Urine Nitrate Positive H Urine Bilirubin Small H Urine Urobilinogen >=8.0 Ur Leukocyte Esterase Large H Urine RBC 0 - 2 Urine WBC 15 - 20 H Ur Epithelial Cells 1 - 3 Urine Bacteria Mod Urine Other Trichomonas Assessment & Plan - Assessment and Plan (Free Text) Assessment: 33F with morbid obesity presents with non healing abdominal wound Plan: - IV antibiotics - Aggressive wound care daily - Currently draining - May benefit from imaging, patient refuses Further recs discuss with Dr. Vidal Culver, PGY3
[2018-12-31] MEDS: Albuterol-Ipratrop 3 mg / 0.5 (3 ml) UD IH SCH ×3 (07:37→20:21)
[2018-12-31] MEDS: Insulin Reg-LOW-Coverage SC SCH ×4 (07:48→22:05)
[2018-12-31 08:03] LABS: BASO # 0.01 K/mm3 (0.0-2.0); BASO % 0.1 % (0.0-3.0); EOS % 0.1 % (1.5-5.0); HEMOGLOBIN 9.6 g/dL (12.0-16.0); LYMPH # 2.2 (1.2-3.4); LYMPH % 17.9 % (22.0-35.0); MEAN CELL VOLUME 82.4 fl (80.0-105.0); MEAN CORPUSCULAR HEMOGLOBIN 24.5 pg (25.0-35.0); MEAN CORPUSCULAR HGB CONC 29.7 g/dl (31.0-37.0); MEAN PLATELET VOLUME 9.7 fl (7.0-11.0); MONO # 0.7 (0.1-0.6); RBC 3.92 10^6/uL (3.5-6.1); WHITE BLOOD COUNT 12.2 10^3/uL (4.5-11.0)
[2018-12-31 08:10] LABS: INR 1.54; PARTIAL THROMBOPLASTIN TIME 33.7 Seconds (26.9-38.3); PROTHROMBIN TIME 17.4 SECONDS (9.4-12.5)
[2018-12-31 08:14] LABS: IRON 17 ug/dL (45-180)
[2018-12-31 08:30] LABS: % IRON SATURATION 6 % (20-55); TOTAL IRON BINDING CAPACITY 273 ug/dL (265-497)
[2018-12-31 08:32] LABS: ALB/GLOB RATIO 0.7 (1.1-1.8); ALBUMIN 3.3 g/dL (3.0-4.8); ALT/SGPT 13 U/L (7-56); AST/SGOT 17 U/L (14-36); BLOOD UREA NITROGEN 9 mg/dL (7-21); CALCIUM 8.3 mg/dL (8.4-10.5); GFR NON-AFRICAN AMERICAN > 60
--- NOTE | 2018-12-31 08:45 | CP.PCM.CON ---
<Jack Chahal - Last Filed: 12/31/18 11:03> History of Present Illness - History of Present Illness History of Present Illness: Infectious disease consult note: 33-year-old female with past medical history of asthma, hypertension, morbid obesity with BMI of 67 presents to the hospital with lower back pain and wound in the lower abdomen. Patient states that her low back pain started few days ago and has gotten progressively worse. She does complain about subjective fevers at home. Patient also complains about a worsening lower abdomen wound that was initially present in February 2018. This is gotten progressively worse and now has purulent drainage from it. No other complaints. 12 point ROS performed negative other than listed above PMH: As above PSH: Appendectomy and tonsillectomy FH: Denies Allergies: Penicillin, pizza, and anesthesia SH: Denies any smoking, drugs, or drinking Medications: See MAR Sexual history: Patient states that she was last sexually active on her birthday on [birth year], does not always use condoms, and denies any STDs in the past. Review of Systems - Review of Systems All systems: reviewed and no additional remarkable complaints except Past Patient History - Infectious Disease Hx of Infectious Diseases: None - Past Social History Smoking Status: Never Smoked - CARDIAC Hx Cardiac Disorders: Yes Hx Hypertension: Yes - PULMONARY Hx Respiratory Disorders: Yes Hx Asthma: Yes - INTEGUMENTARY Other/Comment: multiple boils/absesses - MUSCULOSKELETAL/RHEUMATOLOGICAL Hx Falls: No - PSYCHIATRIC Hx Substance Use: No - SURGICAL HISTORY Hx Appendectomy: Yes Hx Tonsillectomy: Yes - ANESTHESIA Hx Anesthesia: Yes Hx Anesthesia Reactions: Yes (respiratory failure) Meds Allergies/Adverse Reactions: Allergies Allergy/AdvReac Type Severity Reaction Status Date / Time Penicillins Allergy ANAPHYLAXIS Verified 10/15/18 00:40 pizza Allergy URTICARIA Uncoded 10/15/18 00:40 anesthesia AdvReac ANAPHYLAXIS Uncoded 10/15/18 00:40 - Medications Medications: Current Medications Albuterol/Ipratropium (Duoneb 3 Mg/0.5 Mg (3 Ml) Ud) 3 ml IH [id number] RASHMI Last Admin: 12/31/18 07:37 Dose: 3 ml Albuterol/Ipratropium (Duoneb 3 Mg/0.5 Mg (3 Ml) Ud) 3 ml IH [id number] PRN PRN Reason: Shortness of Breath Sodium Chloride (Sodium Chloride 0.9%) 1,000 mls @ 100 mls/hr IV .Q10H RASHMI Last Admin: 12/31/18 02:00 Dose: 100 mls/hr Vancomycin HCl (Vancomycin 1gm) 1 gm in 250 mls @ 167 mls/hr IVPB DAILY RASHMI; Protocol Ciprofloxacin (Cipro 200mg/100ml D5w) 100 mls @ 67 mls/hr IVPB Q12 RASHMI; Protocol Stop: 12/31/18 11:30 Metronidazole (Flagyl) 500 mg in 100 mls @ 100 mls/hr IVPB Q8 RASHMI; Protocol Last Admin: 12/31/18 06:09 Dose: 100 mls/hr Ibuprofen (Motrin Tab) 400 mg PO Q6H PRN PRN Reason: Pain, moderate (4-7) Insulin Human Regular (Humulin R Low) 0 units SC ACHS RASHMI; Protocol Lidocaine (Lidoderm) 1 ea TD DAILY RASHMI Physical Exam - Constitutional Appears: No Acute Distress - Head Exam Head Exam: ATRAUMATIC, NORMOCEPHALIC - Eye Exam Eye Exam: EOMI - ENT Exam ENT Exam: Mucous Membranes Moist - Respiratory Exam Respiratory Exam: Clear to Auscultation Bilateral. absent: Rales, Wheezes - Cardiovascular Exam Cardiovascular Exam: REGULAR RHYTHM, +S1, +S2 - GI/Abdominal Exam GI & Abdominal Exam: Normal Bowel Sounds, Soft. absent: Tenderness - Extremities Exam Extremities exam: Negative for: pedal edema - Neurological Exam Neurological exam: Alert, Oriented x3 - Psychiatric Exam Psychiatric exam: Normal Mood - Skin Skin Exam: Warm Additional comments: Lower pannus: Wound with purulent drainage, mild erythema no edema Results - Vital Signs Recent Vital Signs: Last Vital Signs Temp 99.4 F 12/31/18 01:50 Pulse 93 H 12/31/18 07:40 Resp 20 12/31/18 05:03 BP 110/62 12/31/18 03:45 Pulse Ox 95 12/31/18 03:45 - Labs Result Diagrams: 12/31/18 07:50 12/31/18 07:50 Labs: Laboratory Results - last 24 hr 12/31/18 12/31/18 12/31/18 01:50 01:50 02:26 WBC 13.5 H D RBC 4.05 Hgb 10.1 L Hct 33.2 L MCV 82.0 MCH 24.9 L MCHC 30.4 L RDW 18.8 H Plt Count 332 MPV 9.4 Neut % (Auto) Lymph % (Auto) [place] % (Auto) Eos % (Auto) Baso % (Auto) Lymph # (Auto) [place] # (Auto) Eos # (Auto) Baso # (Auto) Absolute Neuts (auto) Retic Count PT INR APTT pO2 32 VBG pH 7.36 VBG pCO2 53.0 VBG HCO3 29.9 H VBG Total CO2 31.5 H VBG O2 Sat (Calc) 66.1 H VBG Base Excess 3.2 H VBG Potassium 3.6 Glucose 136 H Lactate 0.9 FiO2 21.0 Sodium 135 135.0 Potassium 3.8 Chloride 99 102.0 Carbon Dioxide 28 Anion Gap 13 BUN 9 Creatinine 0.8 Est GFR ( Amer) > 60 Est GFR (Non-Af Amer) > 60 POC Glucose (mg/dL) Random Glucose 142 H Calcium 8.7 Iron TIBC % Saturation Total Bilirubin 1.6 H AST 23 ALT 14 Alkaline Phosphatase 79 Total Protein 8.5 H Albumin 3.7 Globulin 4.8 Albumin/Globulin Ratio 0.8 L Venous Blood Potassium 3.6 Urine Color Urine Appearance Urine pH Ur Specific [place] Urine Protein Urine Glucose (UA) Urine Ketones Urine Blood Urine Nitrate Urine Bilirubin Urine Urobilinogen Ur Leukocyte Esterase Urine RBC Urine WBC Ur Epithelial Cells Urine Bacteria Urine Other 12/31/18 12/31/18 12/31/18 03:10 07:46 07:50 WBC 12.2 H RBC 3.92 Hgb 9.6 L Hct 32.3 L MCV 82.4 MCH 24.5 L MCHC 29.7 L RDW 19.0 H Plt Count 305 MPV 9.7 Neut % (Auto) 75.9 H Lymph % (Auto) 17.9 L [place] % (Auto) 6.0 Eos % (Auto) 0.1 L Baso % (Auto) 0.1 Lymph # (Auto) 2.2 [place] # (Auto) 0.7 H Eos # (Auto) 0.0 Baso # (Auto) 0.01 Absolute Neuts (auto) 9.29 H Retic Count PT INR APTT pO2 VBG pH VBG pCO2 VBG HCO3 VBG Total CO2 VBG O2 Sat (Calc) VBG Base Excess VBG Potassium Glucose Lactate FiO2 Sodium Potassium Chloride Carbon Dioxide Anion Gap BUN Creatinine Est GFR ( Amer) Est GFR (Non-Af Amer) POC Glucose (mg/dL) 121 H Random Glucose Calcium Iron TIBC % Saturation Total Bilirubin AST ALT Alkaline Phosphatase Total Protein Albumin Globulin Albumin/Globulin Ratio Venous Blood Potassium Urine Color Yellow Urine Appearance Sl cloudy Urine pH 6.0 Ur Specific [place] 1.015 Urine Protein 30 H Urine Glucose (UA) Negative Urine Ketones Trace H Urine Blood Small H Urine Nitrate Positive H Urine Bilirubin Small H Urine Urobilinogen >=8.0 Ur Leukocyte Esterase Large H Urine RBC 0 - 2 Urine WBC 15 - 20 H Ur Epithelial Cells 1 - 3 Urine Bacteria Mod Urine Other Trichomonas 12/31/18 12/31/18 12/31/18 07:50 07:50 07:50 WBC RBC Hgb Hct MCV MCH MCHC RDW Plt Count MPV Neut % (Auto) Lymph % (Auto) [place] % (Auto) Eos % (Auto) Baso % (Auto) Lymph # (Auto) [place] # (Auto) Eos # (Auto) Baso # (Auto) Absolute Neuts (auto) Retic Count PT 17.4 H INR 1.54 APTT 33.7 pO2 VBG pH VBG pCO2 VBG HCO3 VBG Total CO2 VBG O2 Sat (Calc) VBG Base Excess VBG Potassium Glucose Lactate FiO2 Sodium 137 Potassium 3.8 Chloride 101 Carbon Dioxide 28 Anion Gap 12 BUN 9 Creatinine 0.7 Est GFR ( Amer) > 60 Est GFR (Non-Af Amer) > 60 POC Glucose (mg/dL) Random Glucose 111 H Calcium 8.3 L Iron 17 L TIBC 273 % Saturation 6 L Total Bilirubin 1.1 AST 17 ALT 13 Alkaline Phosphatase 69 Total Protein 7.8 Albumin 3.3 Globulin 4.5 Albumin/Globulin Ratio 0.7 L Venous Blood Potassium Urine Color Urine Appearance Urine pH Ur Specific [place] Urine Protein Urine Glucose (UA) Urine Ketones Urine Blood Urine Nitrate Urine Bilirubin Urine Urobilinogen Ur Leukocyte Esterase Urine RBC Urine WBC Ur Epithelial Cells Urine Bacteria Urine Other 12/31/18 07:50 WBC RBC Hgb Hct MCV MCH MCHC RDW Plt Count MPV Neut % (Auto) Lymph % (Auto) [place] % (Auto) Eos % (Auto) Baso % (Auto) Lymph # (Auto) [place] # (Auto) Eos # (Auto) Baso # (Auto) Absolute Neuts (auto) Retic Count 1.42 PT INR APTT pO2 VBG pH VBG pCO2 VBG HCO3 VBG Total CO2 VBG O2 Sat (Calc) VBG Base Excess VBG Potassium Glucose Lactate FiO2 Sodium Potassium Chloride Carbon Dioxide Anion Gap BUN Creatinine Est GFR ( Amer) Est GFR (Non-Af Amer) POC Glucose (mg/dL) Random Glucose Calcium Iron TIBC % Saturation Total Bilirubin AST ALT Alkaline Phosphatase Total Protein Albumin Globulin Albumin/Globulin Ratio Venous Blood Potassium Urine Color Urine Appearance Urine pH Ur Specific [place] Urine Protein Urine Glucose (UA) Urine Ketones Urine Blood Urine Nitrate Urine Bilirubin Urine Urobilinogen Ur Leukocyte Esterase Urine RBC Urine WBC Ur Epithelial Cells Urine Bacteria Urine Other Assessment & Plan - Assessment and Plan (Free Text) Assessment: Sepsis with cellulites of abd wall Asymptomatic bacteriurea Acute back pain Trichomonas Asthma Hypertension Morbid obesity Diabetes Penicillin allergy Will d/c Vanc and start Zyvox Ordered Flagyl 2000mg x 1 for trichomonas Will d/c ciprofloxacin - Asymptomatic bacteriurea Follow-up HIV, syphilis, gonorrhea and Chlamydia work-up Explained to the patient in detail regarding her being positive for trichomonas, I also explained to her that she must notify her partner that he should seek treatment as well. Patient verbalized understanding. Recommend giving a script of flagyl 2000mg x 1 to boyfriend and all sexual partners with in the last 60 days for treatment. Also recommend a follow up NAAT (PCR) in 3 months to confirm resolution of trichomonas, no sexual intercourse with in 1 week of treatment. Follow-up CT of the abdomen and pelvis r/o abd wall abscess - patient refusing CT Follow-up CT of the lumbar spine for acute back pain Follow-up septic work-up including urine culture, blood culture, and wound culture Follow-up surgery recommendations Continue to monitor for any changes Case and plan to be reviewed and discussed with Dr. Bashir <Jose Bashir - Last Filed: 12/31/18 18:55> Meds - Medications Medications: Current Medications Albuterol/Ipratropium (Duoneb 3 Mg/0.5 Mg (3 Ml) Ud) 3 ml IH [id number] [facility] Last Admin: 12/31/18 13:12 Dose: 3 ml Albuterol/Ipratropium (Duoneb 3 Mg/0.5 Mg (3 Ml) Ud) 3 ml IH [id number] PRN PRN Reason: Shortness of Breath Ibuprofen (Motrin Tab) 400 mg PO Q6H PRN PRN Reason: Pain, moderate (4-7) Last Admin: 12/31/18 11:08 Dose: 400 mg Insulin Human Regular (Humulin R Low) 0 units SC ACHS RASHMI; Protocol Last Admin: 12/31/18 16:39 Dose: Not Given Lidocaine (Lidoderm) 1 ea TD DAILY RASHMI Last Admin: 12/31/18 11:09 Dose: 1 ea Linezolid (Zyvox) 600 mg PO BID RASHMI; Protocol Stop: 01/09/19 11:01 Last Admin: 12/31/18 17:39 Dose: 600 mg Results - Vital Signs Recent Vital Signs: Last Vital Signs Temp 98.7 F 12/31/18 16:59 Pulse 72 12/31/18 16:59 Resp 19 12/31/18 16:59 BP 119/74 12/31/18 16:59 Pulse Ox 96 12/31/18 16:59 - Labs Result Diagrams: 12/31/18 07:50 12/31/18 07:50 Labs: Laboratory Results - last 24 hr 12/31/18 12/31/18 12/31/18 01:50 01:50 02:26 WBC 13.5 H D RBC 4.05 Hgb 10.1 L Hct 33.2 L MCV 82.0 MCH 24.9 L MCHC 30.4 L RDW 18.8 H Plt Count 332 MPV 9.4 Neut % (Auto) Lymph % (Auto) [place] % (Auto) Eos % (Auto) Baso % (Auto) Lymph # (Auto) [place] # (Auto) Eos # (Auto) Baso # (Auto) Absolute Neuts (auto) Differential Comment ESR Retic Count PT INR APTT pO2 32 VBG pH 7.36 VBG pCO2 53.0 VBG HCO3 29.9 H VBG Total CO2 31.5 H VBG O2 Sat (Calc) 66.1 H VBG Base Excess 3.2 H VBG Potassium 3.6 Glucose 136 H Lactate 0.9 FiO2 21.0 Sodium 135 135.0 Potassium 3.8 Chloride 99 102.0 Carbon Dioxide 28 Anion Gap 13 BUN 9 Creatinine 0.8 Est GFR ( Amer) > 60 Est GFR (Non-Af Amer) > 60 POC Glucose (mg/dL) Random Glucose 142 H Hemoglobin A1c Calcium 8.7 Phosphorus Magnesium Iron TIBC % Saturation Transferrin Ferritin Total Bilirubin 1.6 H AST 23 ALT 14 Alkaline Phosphatase 79 C-React Prot High Sens Total Protein 8.5 H Albumin 3.7 Globulin 4.8 Albumin/Globulin Ratio 0.8 L Procalcitonin Venous Blood Potassium 3.6 Urine Color Urine Appearance Urine pH Ur Specific [place] Urine Protein Urine Glucose (UA) Urine Ketones Urine Blood Urine Nitrate Urine Bilirubin Urine Urobilinogen Ur Leukocyte Esterase Urine RBC Urine WBC Ur Epithelial Cells Urine Bacteria Urine Other RPR 12/31/18 12/31/18 12/31/18 03:10 07:46 07:50 WBC RBC Hgb Hct MCV MCH MCHC RDW Plt Count MPV Neut % (Auto) Lymph % (Auto) [place] % (Auto) Eos % (Auto) Baso % (Auto) Lymph # (Auto) [place] # (Auto) Eos # (Auto) Baso # (Auto) Absolute Neuts (auto) Differential Comment ESR Retic Count PT INR APTT pO2 VBG pH VBG pCO2 VBG HCO3 VBG Total CO2 VBG O2 Sat (Calc) VBG Base Excess VBG Potassium Glucose Lactate FiO2 Sodium Potassium Chloride Carbon Dioxide Anion Gap BUN Creatinine Est GFR ( Amer) Est GFR (Non-Af Amer) POC Glucose (mg/dL) 121 H Random Glucose Hemoglobin A1c Calcium Phosphorus Magnesium Iron TIBC % Saturation Transferrin 187.53 L Ferritin Total Bilirubin AST ALT Alkaline Phosphatase C-React Prot High Sens > 15.00 H Total Protein Albumin Globulin Albumin/Globulin Ratio Procalcitonin Venous Blood Potassium Urine Color Yellow Urine Appearance Sl cloudy Urine pH 6.0 Ur Specific [place] 1.015 Urine Protein 30 H Urine Glucose (UA) Negative Urine Ketones Trace H Urine Blood Small H Urine Nitrate Positive H Urine Bilirubin Small H Urine Urobilinogen >=8.0 Ur Leukocyte Esterase Large H Urine RBC 0 - 2 Urine WBC 15 - 20 H Ur Epithelial Cells 1 - 3 Urine Bacteria Mod Urine Other Trichomonas RPR 12/31/18 12/31/18 12/31/18 07:50 07:50 07:50 WBC 12.2 H RBC 3.92 Hgb 9.6 L Hct 32.3 L MCV 82.4 MCH 24.5 L MCHC 29.7 L RDW 19.0 H Plt Count 305 MPV 9.7 Neut % (Auto) 75.9 H Lymph % (Auto) 17.9 L [place] % (Auto) 6.0 Eos % (Auto) 0.1 L Baso % (Auto) 0.1 Lymph # (Auto) 2.2 [place] # (Auto) 0.7 H Eos # (Auto) 0.0 Baso # (Auto) 0.01 Absolute Neuts (auto) 9.29 H Differential Comment ESR 100 H Retic Count PT 17.4 H INR 1.54 APTT 33.7 pO2 VBG pH VBG pCO2 VBG HCO3 VBG Total CO2 VBG O2 Sat (Calc) VBG Base Excess VBG Potassium Glucose Lactate FiO2 Sodium 137 Potassium 3.8 Chloride 101 Carbon Dioxide 28 Anion Gap 12 BUN 9 Creatinine 0.7 Est GFR ( Amer) > 60 Est GFR (Non-Af Amer) > 60 POC Glucose (mg/dL) Random Glucose 111 H Hemoglobin A1c Calcium 8.3 L Phosphorus Magnesium Iron TIBC % Saturation Transferrin Ferritin 281.0 Total Bilirubin 1.1 AST 17 ALT 13 Alkaline Phosphatase 69 C-React Prot High Sens Total Protein 7.8 Albumin 3.3 Globulin 4.5 Albumin/Globulin Ratio 0.7 L Procalcitonin Venous Blood Potassium Urine Color Urine Appearance Urine pH Ur Specific [place] Urine Protein Urine Glucose (UA) Urine Ketones Urine Blood Urine Nitrate Urine Bilirubin Urine Urobilinogen Ur Leukocyte Esterase Urine RBC Urine WBC Ur Epithelial Cells Urine Bacteria Urine Other RPR 12/31/18 12/31/18 12/31/18 07:50 07:50 07:50 WBC RBC Hgb Hct MCV MCH MCHC RDW Plt Count MPV Neut % (Auto) Lymph % (Auto) [place] % (Auto) Eos % (Auto) Baso % (Auto) Lymph # (Auto) [place] # (Auto) Eos # (Auto) Baso # (Auto) Absolute Neuts (auto) Differential Comment ESR Retic Count 1.42 PT INR APTT pO2 VBG pH VBG pCO2 VBG HCO3 VBG Total CO2 VBG O2 Sat (Calc) VBG Base Excess VBG Potassium Glucose Lactate FiO2 Sodium Potassium Chloride Carbon Dioxide Anion Gap BUN Creatinine Est GFR ( Amer) Est GFR (Non-Af Amer) POC Glucose (mg/dL) Random Glucose Hemoglobin A1c 7.2 H Calcium Phosphorus Magnesium Iron 17 L TIBC 273 % Saturation 6 L Transferrin Ferritin Total Bilirubin AST ALT Alkaline Phosphatase C-React Prot High Sens Total Protein Albumin Globulin Albumin/Globulin Ratio Procalcitonin Venous Blood Potassium Urine Color Urine Appearance Urine pH Ur Specific [place] Urine Protein Urine Glucose (UA) Urine Ketones Urine Blood Urine Nitrate Urine Bilirubin Urine Urobilinogen Ur Leukocyte Esterase Urine RBC Urine WBC Ur Epithelial Cells Urine Bacteria Urine Other RPR 12/31/18 12/31/18 12/31/18 07:50 08:30 08:48 WBC RBC Hgb Hct MCV MCH MCHC RDW Plt Count MPV Neut % (Auto) Lymph % (Auto) [place] % (Auto) Eos % (Auto) Baso % (Auto) Lymph # (Auto) [place] # (Auto) Eos # (Auto) Baso # (Auto) Absolute Neuts (auto) Differential Comment See pathology report ESR Retic Count PT INR APTT pO2 VBG pH VBG pCO2 VBG HCO3 VBG Total CO2 VBG O2 Sat (Calc) VBG Base Excess VBG Potassium Glucose Lactate FiO2 Sodium Potassium Chloride Carbon Dioxide Anion Gap BUN Creatinine Est GFR ( Amer) Est GFR (Non-Af Amer) POC Glucose (mg/dL) Random Glucose Hemoglobin A1c Calcium Phosphorus 3.5 Magnesium 1.7 Iron TIBC % Saturation Transferrin Ferritin Total Bilirubin AST ALT Alkaline Phosphatase C-React Prot High Sens Total Protein Albumin Globulin Albumin/Globulin Ratio Procalcitonin Venous Blood Potassium Urine Color Urine Appearance Urine pH Ur Specific [place] Urine Protein Urine Glucose (UA) Urine Ketones Urine Blood Urine Nitrate Urine Bilirubin Urine Urobilinogen Ur Leukocyte Esterase Urine RBC Urine WBC Ur Epithelial Cells Urine Bacteria Urine Other RPR Nonreactive 12/31/18 12/31/18 12/31/18 10:00 11:43 16:24 WBC RBC Hgb Hct MCV MCH MCHC RDW Plt Count MPV Neut % (Auto) Lymph % (Auto) [place] % (Auto) Eos % (Auto) Baso % (Auto) Lymph # (Auto) [place] # (Auto) Eos # (Auto) Baso # (Auto) Absolute Neuts (auto) Differential Comment ESR Retic Count PT INR APTT pO2 VBG pH VBG pCO2 VBG HCO3 VBG Total CO2 VBG O2 Sat (Calc) VBG Base Excess VBG Potassium Glucose Lactate FiO2 Sodium Potassium Chloride Carbon Dioxide Anion Gap BUN Creatinine Est GFR ( Amer) Est GFR (Non-Af Amer) POC Glucose (mg/dL) 120 H 108 Random Glucose Hemoglobin A1c Calcium Phosphorus Magnesium Iron TIBC % Saturation Transferrin Ferritin Total Bilirubin AST ALT Alkaline Phosphatase C-React Prot High Sens Total Protein Albumin Globulin Albumin/Globulin Ratio Procalcitonin 0.75 H Venous Blood Potassium Urine Color Urine Appearance Urine pH Ur Specific [place] Urine Protein Urine Glucose (UA) Urine Ketones Urine Blood Urine Nitrate Urine Bilirubin Urine Urobilinogen Ur Leukocyte Esterase Urine RBC Urine WBC Ur Epithelial Cells Urine Bacteria Urine Other RPR Attending/Attestation - Attestation I have personally seen and examined this patient.: Yes I have fully participated in the care of the patient.: Yes I have reviewed all pertinent clinical information: Yes
[2018-12-31] MEDS ORDERED: Vancomycin 1gm in NS 250ml 1 GM/250 ML BAG IVPB SCH (10:00)
[2018-12-31] MEDS ORDERED: Ciprofloxacin 200mg/100ml D5W 100 ML IVPB SCH (10:00)
[2018-12-31] MEDS: Lidocaine 5% Patch TD SCH (11:09)
[2018-12-31 12:01] LABS: TRANSFERRIN 187.53 mg/dL (206-381)
[2019-01-01] MEDS: Albuterol-Ipratrop 3 mg / 0.5 (3 ml) UD IH SCH ×3 (01:04→13:54)
[2019-01-01 07:01] LABS: EOS # 0.1 (0.0-0.7); EOS % 0.7 % (1.5-5.0); HEMOGLOBIN 9.8 g/dL (12.0-16.0); LYMPH # 1.2 (1.2-3.4); LYMPH % 15.8 % (22.0-35.0); MEAN CELL VOLUME 82.5 fl (80.0-105.0); MEAN CORPUSCULAR HEMOGLOBIN 24.6 pg (25.0-35.0); MEAN CORPUSCULAR HGB CONC 29.8 g/dl (31.0-37.0); MEAN PLATELET VOLUME 9.7 fl (7.0-11.0); MONO # 0.5 (0.1-0.6); MONO % 6.6 % (1.0-6.0); RBC 3.99 10^6/uL (3.5-6.1); RED CELL DISTRIBUTION WIDTH 18.9 % (11.5-14.5); WHITE BLOOD COUNT 7.4 10^3/uL (4.5-11.0)
[2019-01-01 07:34] LABS: ALB/GLOB RATIO 0.7 (1.1-1.8); ALBUMIN 3.3 g/dL (3.0-4.8); ALT/SGPT 11 U/L (7-56); AST/SGOT 31 U/L (14-36); BLOOD UREA NITROGEN 9 mg/dL (7-21); CALCIUM 8.5 mg/dL (8.4-10.5); GFR NON-AFRICAN AMERICAN > 60
[2019-01-01] MEDS ORDERED: Arformoterol 15 mcg/2 ml Inh Sol IH SCH (08:00)
[2019-01-01] MEDS ORDERED: Budesonide 0.5 mg/2 ml Inhal Susp UD IH SCH (08:00)
[2019-01-01] MEDS: Insulin Reg-LOW-Coverage SC SCH ×3 (08:04→17:06)
[2019-01-01] MEDS: Lidocaine 5% Patch TD SCH (09:42)
--- NOTE | 2019-01-01 12:53 | CP.PCM.PN ---
<Jack Chahal - Last Filed: 01/01/19 15:13> Subjective - Date & Time of Evaluation Date of Evaluation: 01/01/19 Time of Evaluation: 08:00 - Subjective Subjective: ID progress note: Pt seen and examined at bedside. no acute events. Patient still c/o back pain. No other complaints. Objective - Vital Signs/Intake and Output Vital Signs (last 24 hours): Temp Pulse Resp BP Pulse Ox 98.7 F 72 19 119/74 96 12/31/18 16:59 12/31/18 16:59 12/31/18 16:59 12/31/18 16:59 12/31/18 16:59 Intake and Output: 01/01/19 01/01/19 06:59 18:59 Intake Total 240 Output Total 3 Balance 237 - Medications Medications: Current Medications Acetaminophen (Tylenol 325mg Tab) 650 mg PO Q4H PRN PRN Reason: Fever >100.4 F Albuterol/Ipratropium (Duoneb 3 Mg/0.5 Mg (3 Ml) Ud) 3 ml IH [id number] [facility] Last Admin: 01/01/19 07:38 Dose: 3 ml Albuterol/Ipratropium (Duoneb 3 Mg/0.5 Mg (3 Ml) Ud) 3 ml IH [id number] PRN PRN Reason: Shortness of Breath Arformoterol Tartrate (Brovana) 15 mcg IH [id number] [facility] Last Admin: 01/01/19 07:37 Dose: 15 mcg Budesonide (Pulmicort Respules) 0.5 mg IH [id number] [facility] Last Admin: 01/01/19 07:38 Dose: 0.5 mg Iron Sucrose 200 mg/ Sodium (Chloride) 110 mls @ 110 mls/hr IVPB ONCE RASHMI Stop: 01/04/19 07:31 Last Admin: 01/01/19 08:44 Dose: 110 mls/hr Insulin Human Regular (Humulin R Low) 0 units SC ACHS [facility]; Protocol Last Admin: 01/01/19 11:50 Dose: Not Given Lidocaine (Lidoderm) 1 ea TD DAILY [facility] Last Admin: 01/01/19 09:42 Dose: 1 ea Linezolid (Zyvox) 600 mg PO BID [facility]; Protocol Stop: 01/09/19 11:01 Last Admin: 01/01/19 09:42 Dose: 600 mg - Labs Labs: 01/01/19 06:30 01/01/19 06:30 PT 17.4 SECONDS (9.4-12.5) H 12/31/18 07:50 INR 1.54 12/31/18 07:50 APTT 33.7 Seconds (26.9-38.3) 12/31/18 07:50 - Constitutional Appears: No Acute Distress - Head Exam Head Exam: ATRAUMATIC, NORMOCEPHALIC - Eye Exam Eye Exam: EOMI - ENT Exam ENT Exam: Mucous Membranes Moist - Respiratory Exam Respiratory Exam: Clear to Ausculation Bilateral. absent: Wheezes - Cardiovascular Exam Cardiovascular Exam: REGULAR RHYTHM, +S1, +S2 - GI/Abdominal Exam GI & Abdominal Exam: Soft. absent: Tenderness - Extremities Exam Extremities Exam: absent: Calf Tenderness, Pedal Edema - Back Exam Back Exam: paraspinal tenderness. absent: vertebral tenderness - Neurological Exam Neurological Exam: Alert, Awake, Oriented x3 - Psychiatric Exam Psychiatric exam: Normal Mood - Skin Skin Exam: Dry, Warm Assessment and Plan - Assessment and Plan (Free Text) Assessment: Sepsis with cellulites of abd wall Asymptomatic bacteriurea Acute back pain Trichomonas Asthma Hypertension Morbid obesity Diabetes Penicillin allergy Cont Zyvox day 2, Started on antonio F/u Ct of abd and pelvis, and CT of lumbar spine Flagyl 2000mg x 1 for trichomonas Will d/c ciprofloxacin - Asymptomatic bacteriurea Follow-up HIV, gonorrhea and Chlamydia work-up Syphilis - neg Recommend giving a script of flagyl 2000mg x 1 to boyfriend and all sexual partners with in the last 60 days for treatment. Also recommend a follow up NAAT (PCR) in 3 months to confirm resolution of trichomonas, no sexual intercourse with in 1 week of treatment. Follow-up septic work-up including urine culture, blood culture, and wound culture Follow-up surgery recommendations Continue to monitor for any changes Case and plan to be reviewed and discussed with Dr. Bashir <Jose Bashir - Last Filed: 01/01/19 21:09> Objective - Vital Signs/Intake and Output Vital Signs (last 24 hours): Temp Pulse Resp BP Pulse Ox 97.9 F 134 H 20 136/84 90 L 01/01/19 16:14 01/01/19 16:14 01/01/19 16:14 01/01/19 16:14 01/01/19 16:14 - Labs Labs: 01/01/19 06:30 01/01/19 06:30 PT 17.4 SECONDS (9.4-12.5) H 12/31/18 07:50 INR 1.54 12/31/18 07:50 APTT 33.7 Seconds (26.9-38.3) 12/31/18 07:50 Attending/Attestation - Attestation I have personally seen and examined this patient.: Yes I have fully participated in the care of the patient.: Yes I have reviewed all pertinent clinical information, including history, physical exam and plan: Yes
--- NOTE | 2019-01-01 13:09 | US ---
Date of service: 01/01/2019 PROCEDURE: Limited abdominal ultrasound HISTORY: evaluate lower abdominal wall for abscess. COMPARISON: TECHNIQUE: Limited ultrasound was performed over the lower abdomen and pelvis. The study is limited. The patient is morbidly obese FINDINGS: The study shows no evidence of a discrete fluid collection to suggest abscess. IMPRESSION: No evidence of abscess
[2019-01-01] MEDS ORDERED: Meropenem IV 1 gm in NS 1 GM/50 ML BAG IVPB SCH (15:15)
[2019-01-01 16:15] VITALS: BP 136/84; PULSE 134; RESP 20; TEMP 97.9; O2SAT 90
--- NOTE | 2019-01-01 21:15 | CP.PCM.DIS ---
Provider - Provider Date of Admission: 12/31/18 02:45 Attending physician: Ab Hartmann MD Consults: 12/31/18 03:57 Physician Consult Routine Comment: Consulting Provider: Ted Drake Consulting Physician: Ted Drake Reason for Consult: lower abdominal maryan; eval for I&D Physician Consult Routine Comment: Consulting Provider: Corona Kim Consulting Physician: Corona Kim Reason for Consult: lower abdominal maryan/infection 12/31/18 04:49 Physician Consult Routine Comment: Consulting Provider: Amaya Bueno Consulting Physician: Amaya Bueno Reason for Consult: pannus carbuncle vs abscess; purulent drainage Time Spent in preparation of Discharge (in minutes): 45 Hospital Course - Lab Results Lab Results: Micro Results 12/31/18 03:10 Urine,Clean Catch Urine Culture - Final No Growth (<1,000 CFU/ML) 12/31/18 01:50 Skin - Abscess Gram Stain - Final 12/31/18 01:50 Skin - Abscess Wound Culture - Preliminary Gram Negative Candelario 12/31/18 02:10 Blood Blood Culture - Preliminary NO GROWTH AFTER 24 HOURS 12/31/18 01:50 Blood Blood Culture - Preliminary NO GROWTH AFTER 24 HOURS Most Recent Lab Values WBC 7.4 10^3/uL (4.5-11.0) D 01/01/19 06:30 RBC 3.99 10^6/uL (3.5-6.1) 01/01/19 06:30 Hgb 9.8 g/dL (12.0-16.0) L 01/01/19 06:30 Hct 32.9 % (36.0-48.0) L 01/01/19 06:30 MCV 82.5 fl (80.0-105.0) 01/01/19 06:30 MCH 24.6 pg (25.0-35.0) L 01/01/19 06:30 MCHC 29.8 g/dl (31.0-37.0) L 01/01/19 06:30 RDW 18.9 % (11.5-14.5) H 01/01/19 06:30 Plt Count 306 10^3/uL (120.0-450.0) 01/01/19 06:30 MPV 9.7 fl (7.0-11.0) 01/01/19 06:30 Neut % (Auto) 76.9 % (50.0-68.0) H 01/01/19 06:30 Lymph % (Auto) 15.8 % (22.0-35.0) L 01/01/19 06:30 Sullivan % (Auto) 6.6 % (1.0-6.0) H 01/01/19 06:30 Eos % (Auto) 0.7 % (1.5-5.0) L 01/01/19 06:30 Baso % (Auto) 0.0 % (0.0-3.0) 01/01/19 06:30 Lymph # (Auto) 1.2 (1.2-3.4) 01/01/19 06:30 Sullivan # (Auto) 0.5 (0.1-0.6) 01/01/19 06:30 Eos # (Auto) 0.1 (0.0-0.7) 01/01/19 06:30 Baso # (Auto) 0.00 K/mm3 (0.0-2.0) 01/01/19 06:30 Absolute Neuts (auto) 5.69 (1.4-6.5) 01/01/19 06:30 Differential Comment See pathology report 12/31/18 08:30 ESR 100 mm/hr (0.0-20.0) H 12/31/18 07:50 Retic Count 1.42 % (0.5-1.5) 12/31/18 07:50 PT 17.4 SECONDS (9.4-12.5) H 12/31/18 07:50 INR 1.54 12/31/18 07:50 APTT 33.7 Seconds (26.9-38.3) 12/31/18 07:50 pO2 32 mm/Hg (30-55) 12/31/18 02:26 VBG pH 7.36 (7.32-7.43) 12/31/18 02:26 VBG pCO2 53.0 (40-60) 12/31/18 02:26 VBG HCO3 29.9 mmol/l (21-28) H 12/31/18 02:26 VBG Total CO2 31.5 mmol.L (22-28) H 12/31/18 02:26 VBG O2 Sat (Calc) 66.1 % (40-65) H 12/31/18 02:26 VBG Base Excess 3.2 mmol/L (0.0-2.0) H 12/31/18 02:26 VBG Potassium 3.6 mmol/L (3.6-5.2) 12/31/18 02:26 Sodium 135.0 mmol/L (132-148) 12/31/18 02:26 Chloride 102.0 mmol/L (98-107) 12/31/18 02:26 Glucose 136 mg/dl (65-105) H 12/31/18 02:26 Lactate 0.9 mmol/L (0.7-2.1) 12/31/18 02:26 FiO2 21.0 % 12/31/18 02:26 Sodium 138 mmol/L (132-148) 01/01/19 06:30 Potassium 3.8 mmol/L (3.6-5.0) 01/01/19 06:30 Chloride 102 mmol/L (98-107) 01/01/19 06:30 Carbon Dioxide 29 mmol/L (21-33) 01/01/19 06:30 Anion Gap 11 (10-20) 01/01/19 06:30 BUN 9 mg/dL (7-21) 01/01/19 06:30 Creatinine 0.6 mg/dl (0.7-1.2) L 01/01/19 06:30 Est GFR ( Amer) > 60 01/01/19 06:30 Est GFR (Non-Af Amer) > 60 01/01/19 06:30 POC Glucose (mg/dL) 108 mg/dL (65-110) 01/01/19 16:43 Random Glucose 132 mg/dL (70-110) H 01/01/19 06:30 Hemoglobin A1c 7.2 % (4.2-6.5) H 12/31/18 07:50 Calcium 8.5 mg/dL (8.4-10.5) 01/01/19 06:30 Phosphorus 3.5 mg/dL (2.5-4.5) 12/31/18 07:50 Magnesium 1.7 mg/dL (1.7-2.2) 12/31/18 07:50 Iron 17 ug/dL (45-180) L 12/31/18 07:50 TIBC 273 ug/dL (265-497) 12/31/18 07:50 % Saturation 6 % (20-55) L 12/31/18 07:50 Transferrin 187.53 mg/dL (206-381) L 12/31/18 07:50 Ferritin 281.0 ng/mL 12/31/18 07:50 Total Bilirubin 0.5 mg/dL (0.2-1.3) 01/01/19 06:30 AST 31 U/L (14-36) 01/01/19 06:30 ALT 11 U/L (7-56) 01/01/19 06:30 Alkaline Phosphatase 75 U/L (38-126) 01/01/19 06:30 C-React Prot High Sens > 15.00 mg/L (1.00-3.00) H 12/31/18 07:50 Total Protein 7.9 g/dL (5.8-8.3) 01/01/19 06:30 Albumin 3.3 g/dL (3.0-4.8) 01/01/19 06:30 Globulin 4.6 gm/dL 01/01/19 06:30 Albumin/Globulin Ratio 0.7 (1.1-1.8) L 01/01/19 06:30 Procalcitonin 0.75 NG/ML (0.19-0.49) H 12/31/18 10:00 Venous Blood Potassium 3.6 mmol/L (3.6-5.2) 12/31/18 02:26 Urine Color Yellow (YELLOW) 12/31/18 03:10 Urine Appearance Sl cloudy (CLEAR) 12/31/18 03:10 Urine pH 6.0 (4.7-8.0) 12/31/18 03:10 Ur Specific [place] 1.015 (1.005-1.035) 12/31/18 03:10 Urine Protein 30 mg/dL (<30 mg/dL) H 12/31/18 03:10 Urine Glucose (UA) Negative mg/dL (NEGATIVE) 12/31/18 03:10 Urine Ketones Trace mg/dL (NEGATIVE) H 12/31/18 03:10 Urine Blood Small (NEGATIVE) H 12/31/18 03:10 Urine Nitrate Positive (NEGATIVE) H 12/31/18 03:10 Urine Bilirubin Small (NEGATIVE) H 12/31/18 03:10 Urine Urobilinogen >=8.0 E.U./dL (<1 E.U./dL) 12/31/18 03:10 Ur Leukocyte Esterase Large [place]/uL (NEGATIVE) H 12/31/18 03:10 Urine RBC 0 - 2 /hpf (0-2) 12/31/18 03:10 Urine WBC 15 - 20 /hpf (0-6) H 12/31/18 03:10 Ur Epithelial Cells 1 - 3 /hpf (0-5) 12/31/18 03:10 Urine Bacteria Mod /hpf (NONE) 12/31/18 03:10 Urine Other Trichomonas /hpf 12/31/18 03:10 RPR Nonreactive (NONREACTIVE) 12/31/18 08:48 HIV 1&2 Ag/Ab, 4th Gen Nonreactive (Nonreactive) 12/31/18 08:47 - Hospital Course Hospital Course: 33 y/o F with PMHx Asthma, HTN, Morbid Obesity who presents to the ED for lower back pain and worsening chronic lower abdominal boils. Wound cultures obtained and was positive for gram negative rods. Blood/urine cx negative. Patient was placed on merrem IV abx. Patient could not fit in CT scan, abdominal US done and did not show abdominal abscess or fluid collection. UA done and was positive for UTI/trichomonas. patient was given cipro one dose 2000mg and was recommended to notify her sexual partner to get treated. Patient was followed by ID Dr Bashir who recommended oral abx zyvox for 9 more days. Wound care recommended. Patient's back pain is due to morbid obesity, controlled with lidoderm patch. Patient was hemodynamically stable, afebrile, no tachycardia, clinically stable for home discharge. Discharge Exam - Head Exam Head Exam: ATRAUMATIC, NORMOCEPHALIC - Eye Exam Eye Exam: EOMI, Normal appearance - ENT Exam ENT Exam: Normal Exam - Respiratory Exam Respiratory Exam: Clear to PA & Lateral, NORMAL BREATHING PATTERN - Cardiovascular Exam Cardiovascular Exam: REGULAR RHYTHM, +S1, +S2 - GI/Abdominal Exam GI & Abdominal Exam: Soft Additional comments: morbidly obese abdomen, multiple lower abdominal superficial wounds, no pus, non bloody, no erythema - Extremities Exam Extremities exam: normal capillary refill, pedal pulses present - Neurological Exam Neurological exam: Alert, CN II-XII Intact, Oriented x3, Reflexes Normal - Psychiatric Exam Psychiatric exam: Normal Affect, Normal Mood - Skin Skin Exam: Normal Color, Warm Discharge Plan - Discharge Medications Prescriptions: Lidocaine 5% [Lidoderm] 1 ea TD DAILY 3 Days #3 patch Linezolid [Zyvox] 600 mg PO BID 9 Days #18 tab metFORMIN [glucOPHAGE] 500 mg PO BID 30 Days #60 tab - Follow Up Plan Condition: GOOD Disposition: HOME/ ROUTINE Instructions: Erythema Nodosum, Cellulitis (Skin Infection), Adult (DC) Additional Instructions: Take the antibiotic zyvox for 9 more days Take the metformin 500 twice a day Please follow up with your primary care doctor for refills. Try to see your primary care doctor in 3-5 days. Resume the rest of your home medications. Take the iron for anemia, and colace as needed for constipation Please see your CERTIFIED HYPERBARIC TECHNICIAN for vaginal bleeding/anemia Referrals: Judy Arriaza MD [Family Provider] -
== END 2019-01-01 20:27 | disposition home or self-care (01) | DRG 277 ==
LOC: ED 01:17 → ERH 02:45 → 3RSO 03:51
PROVIDERS: ADMIT Internal Medicine; ATTEND Internal Medicine
PROC: 3E0F7GC Introduction of Other Therapeutic Substance into Respiratory Tract, Via Natural or Artificial Opening (ICD-10-PCS; principal; 2018-12-31)
DX: L02.221 Furuncle of abdominal wall (principal); N39.0 Urinary tract infection, site not specified; A59.9 Trichomoniasis, unspecified; E66.01 Morbid (severe) obesity due to excess calories; Z68.44 Body mass index [BMI] 60.0-69.9, adult; I10 Essential (primary) hypertension; E11.9 Type 2 diabetes mellitus without complications; J45.909 Unspecified asthma, uncomplicated; M54.5 Low back pain; Z88.0 Allergy status to penicillin